=== PATIENT | male | born 1940 | race Caucasian/White ===

== ENCOUNTER → 2016-12-04 | Outpatient (CLI) | payer BC ==
[~2016-12-04] MED LIST: ANT25 PO; ASPEC81 PO; ATV1 PO; CALC600T9 PO; CARB25TA16 PO; CLB/200 PO; CLOP1TAB15 PO; CYCL5TAB PO; DIPH25CA65 PO; DONE5TAB9 PO; EFFSR150 PO; FENO134C2 PO; FIBER PO; GABA-113 PO; GLC500 PO; LOVA40TA4 PO; MELATAB2 PO; METO50TA16 PO; MULT-506 PO; NTRGSL/4 SL; OMEG10007 PO; TRAZ50TA35 PO
[2016-12-04 13:04] LABS: BASO % 0.8 %; BASO ABS # 0.03 K/uL (0-0.2); COMPLETE YES; EOS % 1.1 %; HEMATOCRIT 38.8 % (42-52); LYMPH % 26.1 %; LYMPH ABS # 0.95 K/uL (1.2-3.4); MEAN CELL VOLUME 94.4 fL (80-100); MEAN CORPUSCULAR HEMOGLOBIN 30.7 pg (25-34); MEAN CORPUSCULAR HGB CONC 32.5 g/dl (32-36); MEAN PLATELET VOLUME 9.2 fL (7.4-10.4); MONO % 15.7 %; NEUT % 56.3 %; PLATELET COUNT 186 K/uL (130-400); RED BLOOD COUNT 4.11 M/uL (4.7-6.1); WHITE BLOOD COUNT 3.64 K/uL (4.8-10.8)
[2016-12-04 13:56] LABS: ESTIMATED AVERAGE GLUCOSE 146 mg/dl; HA1C FLAG Normal (Normal)
[2016-12-04 16:29] LABS: ALT/SGPT 42 U/L (12-78); AST/SGOT 29 U/L (15-37); BLOOD UREA NITROGEN 15 mg/dl (7-18); BUN/CREATININE RATIO 12.1 (10-20); CALCIUM 8.7 mg/dl (8.5-10.1); CARBON DIOXIDE 31 mmol/L (21-32); CHLORIDE 106 mmol/L (98-107); GLUCOSE 128 mg/dl (70-99); POTASSIUM 4.6 mmol/L (3.5-5.1); SODIUM 141 mmol/L (136-145)
[2016-12-04 16:32] LABS: ALB/GLOB RATIO 1.2 (0.9-2); ALKALINE PHOSPHATASE 38 U/L (45-117); CHOLESTEROL 146 mg/dl (0-200); CHOLESTEROL/HDL RATIO 4.1; HDL CHOLESTEROL 36 mg/dl; LDL CHOLESTEROL CALCULATED 74 mg/dl; TRIGLYCERIDES 178 mg/dl (0-150); VERY LOW DENSITY LIPOPROT CALC 36 mg/dl
== END | disposition home or self-care (01) ==
LOC: C.LABMFLN 11:27
PROVIDERS: ATTEND Family Medicine
DX: E11.610 Type 2 diabetes mellitus with diabetic neuropathic arthropathy (principal); I10 Essential (primary) hypertension; I25.10 Atherosclerotic heart disease of native coronary artery without angina pectoris; E53.8 Deficiency of other specified B group vitamins; D50.9 Iron deficiency anemia, unspecified

== ENCOUNTER → 2017-01-22 | Outpatient (CLI) | payer BC ==
[2017-01-22 18:17] LABS: BASO % 0.4 %; BASO ABS # 0.02 K/uL (0-0.2); COMPLETE YES; EOS % 0.6 %; IG% 0.2 %; LYMPH % 24.6 %; LYMPH ABS # 1.18 K/uL (1.2-3.4); MEAN CELL VOLUME 94.4 fL (80-100); MEAN CORPUSCULAR HEMOGLOBIN 31.1 pg (25-34); MEAN PLATELET VOLUME 9.9 fL (7.4-10.4); MONO % 11.9 %; NEUT % 62.3 %; PLATELET COUNT 174 K/uL (130-400); RED BLOOD COUNT 3.92 M/uL (4.7-6.1); WHITE BLOOD COUNT 4.79 K/uL (4.8-10.8)
[2017-01-22 18:28] LABS: TOTAL IRON BINDING CAPACITY 421 mcg/dl (250-450)
== END | disposition home or self-care (01) ==
LOC: C.LABMFLN 12:58
PROVIDERS: ATTEND Family Medicine
DX: E11.610 Type 2 diabetes mellitus with diabetic neuropathic arthropathy (principal); I10 Essential (primary) hypertension; I25.10 Atherosclerotic heart disease of native coronary artery without angina pectoris; E53.8 Deficiency of other specified B group vitamins; D50.9 Iron deficiency anemia, unspecified; K92.1 Melena

== ENCOUNTER → 2017-02-07 | Outpatient (CLI) | payer BC | END | disposition home or self-care (01) | LOC: C.LABSPEC 17:44 | PROVIDERS: ATTEND Family Medicine | DX: E11.9 Type 2 diabetes mellitus without complications (principal); D50.9 Iron deficiency anemia, unspecified; K92.1 Melena ==

== ENCOUNTER → 2017-02-08 | Outpatient (CLI) | payer BC ==
[2017-02-08 18:12] LABS: URINE APPEARANCE CLEAR (CLEAR); URINE BILIRUBIN NEG (NEG); URINE COLOR YELLOW; URINE NITRITE NEG (NEG); URINE SPECIFIC GRAVITY 1.018 (1.000-1.030); UROBILINOGEN NEG (NEG)
[2017-02-08 18:29] LABS: MANUAL MICROSCOPIC REQUIRED? NO; REVIEW REQ? NO
[2017-02-08 18:33] LABS: RATIO 6.1 mcg/mg (0-30.0)
== END | disposition home or self-care (01) ==
LOC: C.LABMFLN 12:33
PROVIDERS: ATTEND Family Medicine
DX: E11.610 Type 2 diabetes mellitus with diabetic neuropathic arthropathy (principal); E53.8 Deficiency of other specified B group vitamins; D50.9 Iron deficiency anemia, unspecified; I10 Essential (primary) hypertension; I25.10 Atherosclerotic heart disease of native coronary artery without angina pectoris

== ENCOUNTER → 2017-02-18 | Outpatient (CLI) | payer BC ==
[2017-02-18 17:54] LABS: HEMATOCRIT 36.1 % (42-52)
== END | disposition home or self-care (01) ==
LOC: C.LABMFLN 15:48
PROVIDERS: ATTEND Family Medicine
DX: D64.9 Anemia, unspecified (principal)

== ENCOUNTER → 2017-04-19 | Outpatient (CLI) | payer BC ==
[2017-04-19 13:33] LABS: BASO ABS # 0.04 K/uL (0-0.2); COMPLETE YES; EOS % 0.8 %; HEMATOCRIT 34.3 % (42-52); IG% 0.3 %; LYMPH % 28.2 %; LYMPH ABS # 1.08 K/uL (1.2-3.4); MEAN CELL VOLUME 94.2 fL (80-100); MEAN CORPUSCULAR HEMOGLOBIN 31.6 pg (25-34); MEAN CORPUSCULAR HGB CONC 33.5 g/dl (32-36); MEAN PLATELET VOLUME 9.6 fL (7.4-10.4); MONO % 13.1 %; NEUT % 56.6 %; PLATELET COUNT 186 K/uL (130-400); RED BLOOD COUNT 3.64 M/uL (4.7-6.1); WHITE BLOOD COUNT 3.83 K/uL (4.8-10.8)
[2017-04-19 13:58] LABS: ALT/SGPT 36 U/L (12-78); AST/SGOT 25 U/L (15-37); BLOOD UREA NITROGEN 19 mg/dl (7-18); BUN/CREATININE RATIO 14.8 (10-20); CALCIUM 9.2 mg/dl (8.5-10.1); CARBON DIOXIDE 28 mmol/L (21-32); CHLORIDE 104 mmol/L (98-107); CHOLESTEROL 134 mg/dl (0-200); GLUCOSE 139 mg/dl (70-99); POTASSIUM 4.7 mmol/L (3.5-5.1); SODIUM 139 mmol/L (136-145); TRIGLYCERIDES 201 mg/dl (0-150); VERY LOW DENSITY LIPOPROT CALC 40 mg/dl
[2017-04-19 14:01] LABS: ALB/GLOB RATIO 1.3 (0.9-2); ALKALINE PHOSPHATASE 36 U/L (45-117); CHOLESTEROL/HDL RATIO 3.9; HDL CHOLESTEROL 34 mg/dl; LDL CHOLESTEROL CALCULATED 60 mg/dl
[2017-04-20 06:09] LABS: ESTIMATED AVERAGE GLUCOSE 140 mg/dl; HA1C FLAG Normal (Normal)
== END | disposition home or self-care (01) ==
LOC: C.LABMFLN 11:42
PROVIDERS: ATTEND Family Medicine
DX: E11.610 Type 2 diabetes mellitus with diabetic neuropathic arthropathy (principal); I10 Essential (primary) hypertension; D50.9 Iron deficiency anemia, unspecified

== ENCOUNTER → 2017-04-21 | Outpatient (CLI) | payer BC ==
[2017-04-21 14:45] LABS: THYROID STIMULATING HORMONE 1.43 uIu/ml (0.300-4.500)
== END | disposition home or self-care (01) ==
LOC: C.LABMFLN 11:55
PROVIDERS: ATTEND Family Medicine
DX: R53.83 Other fatigue (principal)

== ENCOUNTER → 2017-08-02 | Outpatient (CLI) | payer BC ==
[2017-08-02 18:09] LABS: HEMOGLOBIN A1C 7.3 % (4.5-5.6)
[2017-08-02 18:13] LABS: ALBUMIN 3.7 gm/dl (3.4-5.0); BLOOD UREA NITROGEN 23 mg/dl (7-18); CARBON DIOXIDE 28 mmol/L (21-32); CREATININE 1.21 mg/dl (0.60-1.40); GLUCOSE 149 mg/dl (70-99); POTASSIUM 4.4 mmol/L (3.5-5.1); SODIUM 139 mmol/L (136-145)
[2017-08-02 18:23] LABS: BASO % 1.3 %; BASO ABS # 0.05 K/uL (0-0.2); EOS % 0.5 %; EOS ABS # 0.02 K/uL (0-0.5); HEMATOCRIT 35.5 % (42-52); HEMOGLOBIN 11.6 g/dL (14.0-18.0); IG# 0.01 K/uL (0.00-0.02); LYMPH % 27.2 %; LYMPH ABS # 1.07 K/uL (1.2-3.4); MEAN CELL VOLUME 93.4 fL (80-100); MEAN CORPUSCULAR HEMOGLOBIN 30.5 pg (25-34); MEAN CORPUSCULAR HGB CONC 32.7 g/dl (32-36); MEAN PLATELET VOLUME 9.9 fL (7.4-10.4); MONO % 11.7 %; MONO ABS # 0.46 K/uL (0.11-0.59); NEUT ABS # 2.33 K/uL (1.4-6.5); PLATELET COUNT 172 K/uL (130-400); RED CELL DISTRIBUTION WIDTH CV 13.9 % (11.5-14.5); WHITE BLOOD COUNT 3.94 K/uL (4.8-10.8)
[2017-08-02 20:04] LABS: ALKALINE PHOSPHATASE 44 U/L (45-117); ALT/SGPT 35 U/L (12-78); AST/SGOT 22 U/L (15-37); CHOLESTEROL 127 mg/dl (0-200); LDL CHOLESTEROL CALCULATED 52 mg/dl; TOTAL PROTEIN 7.1 gm/dl (6.4-8.2)
== END | disposition home or self-care (01) ==
LOC: C.LABMFLN 14:03
PROVIDERS: ATTEND Family Medicine
DX: D64.9 Anemia, unspecified (principal); I10 Essential (primary) hypertension; E11.9 Type 2 diabetes mellitus without complications; Z12.5 Encounter for screening for malignant neoplasm of prostate

== ENCOUNTER → 2017-10-07 | Outpatient (CLI) | payer BC ==
[2017-10-07 18:06] LABS: HEMATOCRIT 34.4 % (42-52); HEMOGLOBIN 11.4 g/dL (14.0-18.0)
[2017-10-07 18:27] LABS: TRANSFERRIN 360 mg/dl (200-360)
== END | disposition home or self-care (01) ==
LOC: C.LABMFLN 14:01
PROVIDERS: ATTEND Family Medicine
DX: D64.9 Anemia, unspecified (principal)

== ENCOUNTER → 2017-12-02 | Outpatient (CLI) | payer BC ==
[~2017-12-02] MED LIST changes: -ASPEC81 PO; +ASPI-320 PO
== END | disposition home or self-care (01) ==
LOC: C.LABMFLN 13:54
PROVIDERS: ATTEND Family Medicine
DX: E78.00 Pure hypercholesterolemia, unspecified (principal)

== ENCOUNTER → 2018-03-03 | Outpatient (CLI) | payer BC ==
[2018-03-03 18:14] LABS: BASO % 1.1 %; BASO ABS # 0.05 K/uL (0-0.2); EOS % 0.4 %; EOS ABS # 0.02 K/uL (0-0.5); HEMATOCRIT 32.8 % (42-52); HEMOGLOBIN 10.1 g/dL (14.0-18.0); LYMPH % 26.2 %; LYMPH ABS # 1.23 K/uL (1.2-3.4); MEAN CELL VOLUME 86.5 fL (80-100); MEAN CORPUSCULAR HEMOGLOBIN 26.6 pg (25-34); MEAN CORPUSCULAR HGB CONC 30.8 g/dl (32-36); MEAN PLATELET VOLUME 9.7 fL (7.4-10.4); MONO % 8.5 %; NEUT % 63.8 %; PLATELET COUNT 195 K/uL (130-400); RED CELL DISTRIBUTION WIDTH CV 15.8 % (11.5-14.5); RED CELL DISTRIBUTION WIDTH SD 50.1 fL (36.4-46.3)
[2018-03-03 18:23] LABS: BLOOD UREA NITROGEN 19 mg/dl (7-18); CALCIUM 9.1 mg/dl (8.5-10.1); CARBON DIOXIDE 30 mmol/L (21-32); CREATININE 1.28 mg/dl (0.60-1.40); GLUCOSE 99 mg/dl (70-99); SODIUM 139 mmol/L (136-145); TRANSFERRIN 376 mg/dl (200-360)
== END | disposition home or self-care (01) ==
LOC: C.LABMFLN 14:24
PROVIDERS: ATTEND Family Medicine
DX: I10 Essential (primary) hypertension (principal); I25.10 Atherosclerotic heart disease of native coronary artery without angina pectoris; E53.8 Deficiency of other specified B group vitamins; D50.9 Iron deficiency anemia, unspecified

== ENCOUNTER 2021-01-21 14:42 | Inpatient (IN) ==
--- NOTE | 2021-01-21 15:18 | Emergency Department Note ---
History of Present Illness General Chief complaint: Shortness of Breath/Dyspnea Stated complaint: SOB Time Seen by Provider: 01/21/21 14:55 History of Present Illness Provider complaint: Shortness of breath Onset (ago): week(s) 2 Associated symptoms: + shortness of breath; no chest pain, no cough, no fever/chills, no headaches and no nausea/vomiting 74-year-old male presents emergency department for shortness of breath. Patient reports he has been having shortness of breath for the last 2 weeks after he had a port placed. Patient states he saw his zipper trimmer Dr. Chacon today who referred him to the emergency department. He states he is on Plavix. He denies any chest pain. He denies any recent travel. No hematuria melena hematochezia or dysuria. Home Medications Medication Instructions Recorded Confirmed Type lancets 33 gauge #30 ea 01/15/19 01/21/21 Rx nitroglycerin 400 mcg/spray 1 sprays SL Q5M PRN #4.9 gm 01/15/19 01/21/21 Rx translingual triamcinolone acetonide 0.1 % 1 appln TOP BID PRN 02/14/19 01/21/21 History topical cream aspirin 81 mg chewable tablet 81 mg PO QAM 02/23/19 01/21/21 History cyanocobalamin (vitamin B-12) 1,000 mcg PO HS 02/23/19 01/21/21 History 1,000 mcg tablet multivitamin 1 tab PO QPM #0 02/23/19 01/21/21 History peg 400-propylene glycol 0.4 %-0.3 1 drops OP Q4H PRN ml 02/23/19 01/21/21 History % eye drops blood sugar diagnostic #50 ea 04/13/19 01/21/21 Rx fenofibrate micronized 134 mg 134 mg PO QAM 04/27/19 01/21/21 History capsule ketoconazole 2 % shampoo 1 appln TOPICAL 2XWK #120 ml 11/24/19 01/21/21 Rx meclizine 25 mg tablet 25 mg PO TID PRN #90 tab 12/12/19 01/21/21 Rx atorvastatin 40 mg tablet 40 mg PO HS #90 tab 04/29/20 01/21/21 Rx aripiprazole 5 mg tablet 5 mg PO HS #90 tab 06/25/20 01/21/21 Rx metformin 500 mg tablet,extended 1,000 mg PO BID #360 tab 11/21/20 01/21/21 Rx release 24 hr isosorbide mononitrate 60 mg 120 mg PO QAM tab 12/05/20 01/21/21 History tablet,extended release 24 hr trazodone 100 mg tablet 300 mg PO HS #270 tab 12/26/20 01/21/21 Rx glimepiride 1 mg tablet 1 mg PO .COMPLEX tab 12/31/20 01/21/21 History ipratropium bromide 42 mcg (0.06 2 spray INTRANASAL BID PRN #15 ml 01/01/21 01/21/21 Rx %) nasal spray biotin 5,000 mcg PO HS 01/02/21 01/21/21 History cholecalciferol (vitamin D3) 50 mcg PO HS 01/02/21 01/21/21 History clopidogrel [Plavix] 75 mg PO QAM 01/02/21 01/21/21 History donepezil 5 mg PO QAM 01/02/21 01/21/21 History loratadine [Claritin] 10 mg PO QAM 01/02/21 01/21/21 History omeprazole 40 mg PO QAM 01/02/21 01/21/21 History torsemide 40 mg PO QAM 01/02/21 01/21/21 History venlafaxine 225 mg PO HS 01/02/21 01/21/21 History oxycodone-acetaminophen [Percocet] 1 - 2 tab PO .q4-6h PRN #6 tab 01/06/21 01/21/21 Rx metoprolol tartrate 50 mg tablet 50 mg PO BID #180 tab 01/18/21 01/21/21 Rx ferrous sulfate 325 mg (65 mg 325 mg PO DAILY 01/21/21 01/21/21 History iron) tablet Allergies Allergy/AdvReac Type Severity Reaction Status Date / Time Cephalosporins Allergy Intermediate FEVER/CHILL Verified 01/21/21 13:25 S diazepam AdvReac Severe DEPRESSION Verified 01/21/21 13:25 midazolam AdvReac Severe suicidal Verified 01/21/21 13:25 depression warfarin AdvReac Severe CAUSES Verified 01/21/21 13:25 TOXICITY lisinopril AdvReac Mild COUGH Verified 01/21/21 13:25 Past Med/Surg History Medical History Abnormal PET scan of lung Anemia Arthritis Bipolar affective disorder CAD (coronary artery disease) s/p AMINTA x 2 09/2015 Chest pain awoke with severe chest pain on November 02, 2020. Seen by cardio (Haseeb), had negative/normal stress echo. 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 Metastatic colorectal cancer Mild cognitive impairment Neurologic gait dysfunction Obstructive sleep apnea cpap Port-A-Cath in place Pulmonary nodules Right kidney mass Scoliosis Shortness of breath Stroke x2--09/1988 and smaller stroke in 1991--uses cane to ambulate--no neurologist now 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 Vertigo Surgical History H/O abdominal aortic aneurysm repair @ [facility] [place] 2002 H/O gastric bypass (~2003) History of AAA (abdominal aortic aneurysm) repair per pt was leaking after 1st repair and had second done 2003 @ [facility] [place] History of basal cell carcinoma excision History of bilateral cataract extraction History of cardiac cath x2 @ [facility]--10/22/2015--1 AMINTA placed 09/24/2015--1 AMINTA placed History of colonoscopy with polypectomy History of esophagogastroduodenoscopy (EGD) History of heart artery stent x2 total---10/22/2015--1 AMINTA placed 09/24/2015--1 AMINTA placed History of needle biopsy on lymph node 11/2020 History of sinus surgery (~1969) History of squamous cell carcinoma excision History of tonsillectomy History of tooth extraction all teeth Hx of cholecystectomy Hx of transurethral resection of prostate x2 S/P lumbar fusion S/P lymph node biopsy Family History Mother Urinary bladder cancer Father Lead poisoning Other No family history of adverse response to anesthesia Social History Smoking Status: Former smoker Tobacco Type: Cigarettes packs per day: 4; Years Smoked: 38; Second Hand Exposure: No; Hx Alcohol Use: Yes Alcohol type: beer Hx Substance Use: No Preferred Language: Macanese Communication Ability: Effective Invoice Control 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 Required: No Beliefs That Will Affect Care: None marital status: Current Living Situation: Spouse current occupational status: retired How many Children do You have: 2 Feels Safe at Home: Yes Physical Activity Frequency: Does not Exercise Seatbelt Use: always Assistive Devices: Cane, CPAP, Denture - Upper, Denture - Lower, Glasses and Hearing Aid - Bilateral Review of Systems A total of 10 systems reviewed and were otherwise negative Physical Exam Vital Signs Vital Signs - 24 hr 01/21/21 14:52 01/21/21 15:00 01/21/21 15:23 Temperature 37.1 C Temperature Source Oral Pulse Rate 117 H 117 H 117 H Pulse Rate from SpO2 Sensor 117 H 117 H Respiratory Rate 22 19 17 Respiratory Effort / Characteristics Non-Labored Spontaneous Respiratory Depth Normal Respiratory Pattern Regular Blood Pressure 119/90 147/86 H Blood Pressure Mean 99 106 Blood Pressure Position Sitting Pulse Oximetry 93 94 94 Oxygen Delivery Method Nasal Cannula Oxygen Flow Rate 2 Sepsis Recent Fever Within 48 Hours No Sepsis New/Unexplained Change in Mental Status No Sepsis Action Taken by Nursing Physician Notified 01/21/21 15:30 01/21/21 15:40 01/21/21 15:50 Temperature Temperature Source Pulse Rate 118 H 116 H 117 H Pulse Rate from SpO2 Sensor 119 H 117 H 118 H Respiratory Rate 16 19 Respiratory Effort / Characteristics Respiratory Depth Respiratory Pattern Blood Pressure Blood Pressure Mean Blood Pressure Position Pulse Oximetry 94 94 95 Oxygen Delivery Method Oxygen Flow Rate Sepsis Recent Fever Within 48 Hours Sepsis New/Unexplained Change in Mental Status Sepsis Action Taken by Nursing 01/21/21 16:00 01/21/21 16:01 01/21/21 16:02 Temperature Temperature Source Pulse Rate 122 H 122 H Pulse Rate from SpO2 Sensor 123 H 122 H Respiratory Rate 16 18 Respiratory Effort / Characteristics Respiratory Depth Respiratory Pattern Blood Pressure 155/97 H Blood Pressure Mean 116 Blood Pressure Position Pulse Oximetry 95 96 96 Oxygen Delivery Method Nasal Cannula Oxygen Flow Rate 2 Sepsis Recent Fever Within 48 Hours Sepsis New/Unexplained Change in Mental Status Sepsis Action Taken by Nursing 01/21/21 16:10 01/21/21 16:20 01/21/21 16:30 Temperature Temperature Source Pulse Rate 120 H 120 H 117 H Pulse Rate from SpO2 Sensor 121 H 120 H 116 H Respiratory Rate 16 19 Respiratory Effort / Characteristics Respiratory Depth Respiratory Pattern Blood Pressure Blood Pressure Mean Blood Pressure Position Pulse Oximetry 96 97 97 Oxygen Delivery Method Oxygen Flow Rate Sepsis Recent Fever Within 48 Hours Sepsis New/Unexplained Change in Mental Status Sepsis Action Taken by Nursing 01/21/21 16:40 Temperature Temperature Source Pulse Rate 120 H Pulse Rate from SpO2 Sensor 122 H Respiratory Rate 20 Respiratory Effort / Characteristics Respiratory Depth Respiratory Pattern Blood Pressure Blood Pressure Mean Blood Pressure Position Pulse Oximetry 97 Oxygen Delivery Method Oxygen Flow Rate Sepsis Recent Fever Within 48 Hours Sepsis New/Unexplained Change in Mental Status Sepsis Action Taken by Nursing Physical Exam GENERAL: She is oriented to person, place, and time. She appears well-developed and well-nourished. She does not appear distressed. HENT: Exam performed. -Head: Normocephalic and atraumatic. -Right Ear: External ear normal. No mastoid tenderness. -Left Ear: External ear normal. No mastoid tenderness. -Mouth/Throat: The oropharynx is clear and moist. No trismus in the jaw. No dental abscesses or uvula swelling. No oropharyngeal exudate or tonsillar abscesses. EYES: Conjunctivae and EOM are normal. Pupils are equal, round, and reactive to light. Right eye exhibits no discharge. Left eye exhibits no discharge. No scleral icterus. NECK: Normal range of motion. Neck supple. No JVD present. No spinous process tenderness present. No carotid bruit present. No rigidity. No tracheal deviation and normal range of motion present. No Brudzinski's sign and no Kernig's sign noted. CV: Tachycardic rate, regular rhythm, normal heart sounds and intact distal pulses. There is no peripheral edema. Palpable radial pulses bue. PULM/CHEST: Diminished breath sounds bilaterally. -Chest Wall: She exhibits no tenderness. ABD: The abdomen is soft. Bowel sounds are normal. She has no distension. No mass is present. There is no tenderness. There is no rebound, no guarding, no Ridley's sign and no tenderness at McBurney's point. Rovsig negative MUSC/SKEL: Normal range of motion. There is no peripheral edema, tenderness or deformity. LYMPH: No cervical adenopathy. NEURO: She is alert and oriented to person, place, and time. She has normal strength. No cranial nerve deficit or sensory deficit. Coordination and gait normal. GCS eye subscore is 4. GCS verbal subscore is 5. GCS motor subscore is 6. Cerebellar tests wnl. SKIN: Pale. PSYCH: She has a normal mood and affect. Behavior is normal. Judgment and thought content normal. Course Course 1455: The patient was evaluated in room A11. A complete history and physical exam was performed Cardiac monitoring: An order was placed for continuous cardiac monitoring. The monitor shows a rate of 110 with sinus tachycardia rhythm I received a call from the patient's zipper trimmer Dr. Bray who informed about the patient. He states he conducted a chest x-ray which showed a pleural effusion that is worsening. He states he is referring the patient to the emergency department for his colleague Dr. Braydon Alan to evaluate the patient for thoracentesis/drainage of the effusion. 1505: Dr. Alan was notified of the patient arriving in the emergency department states he will be down to evaluate the patient shortly. 1645: Vital signs stable. Labs show hemoglobin of 7.8 which is down from 8.[address] Alan came down and evaluated the patient and performed thoracentesis. We will plan on admitting the patient to the medicine service given his worsening anemia and pleural effusion that required drainage. Hemoccult positive. Discussed case with Dr. Sanabria will evaluate the patient for admission. Dr. Sanabria and her team state hold off on Protonix bolus and drip at this point as they will dose the patient's Protonix. Medical Decision Making Laboratory Data Result diagrams: 01/21/21 15:38 01/21/21 15:38 Lab Results 01/21/21 01/21/21 01/21/21 Range/Units 15:38 15:38 15:38 WBC 5.70 (4.8-10.8) K/uL RBC 3.10 L (4.7-6.1) M/uL Hgb 7.8 L (14.0-18.0) g/dL Hct 24.8 L (42-52) % MCV 80.0 (80-100) fL MCH 25.2 (25-34) pg MCHC 31.5 L (32-36) g/dL RDW Std Deviation 45.7 (36.4-46.3) fL RDW Coeff of Joe 15.6 H (11.5-14.5) % Plt Count 306 (130-400) K/uL MPV 8.2 (7.4-10.4) fL Immature Gran % (Auto) 0.2 % Neut % (Auto) 74.4 % Lymph % (Auto) 11.8 % Elbert % (Auto) 10.2 % Eos % (Auto) 2.5 % Baso % (Auto) 0.9 % Neut # (Auto) 4.25 (1.4-6.5) K/uL Lymph # (Auto) 0.67 L (1.2-3.4) K/uL Elbert # (Auto) 0.58 (0.11-0.59) K/uL Eos # (Auto) 0.14 (0-0.5) K/uL Baso # (Auto) 0.05 (0-0.2) K/uL Immature Gran # (Auto) 0.01 (0.00-0.02) K/uL Hypochromasia Present Ovalocytes 1+ PT 10.7 (9.0-12.0) Seconds INR 1.1 (0.9-1.1) APTT 25.6 (21.0-31.0) Seconds PTT Ratio 1.0 Sodium 137 (136-145) mmol/L Potassium 4.1 (3.5-5.1) mmol/L Chloride 104 (98-107) mmol/L Carbon Dioxide 27 (21-32) mmol/L Anion Gap 6.0 (3-11) BUN 18 (7-18) mg/dl Creatinine 1.12 (0.6-1.4) mg/dl Est Cr Clr Drug Dosing 73.3 ml/min Est GFR ( Amer) 72.5 ml/min Est GFR (Non-Af Amer) 62.6 ml/min BUN/Creatinine Ratio 16.4 (10-20) Glucose 172 H (70-99) mg/dl Calcium 8.7 (8.5-10.1) mg/dl Fluid Comment Pleural pH (7.3-7.4) COVID-19 Eval Order SARS-CoV-2 (PCR) (Negative) 01/21/21 01/21/21 01/21/21 Range/Units 15:38 15:38 16:14 WBC (4.8-10.8) K/uL RBC (4.7-6.1) M/uL Hgb (14.0-18.0) g/dL Hct (42-52) % MCV (80-100) fL MCH (25-34) pg MCHC (32-36) g/dL RDW Std Deviation (36.4-46.3) fL RDW Coeff of Joe (11.5-14.5) % Plt Count (130-400) K/uL MPV (7.4-10.4) fL Immature Gran % (Auto) % Neut % (Auto) % Lymph % (Auto) % Elbert % (Auto) % Eos % (Auto) % Baso % (Auto) % Neut # (Auto) (1.4-6.5) K/uL Lymph # (Auto) (1.2-3.4) K/uL Elbert # (Auto) (0.11-0.59) K/uL Eos # (Auto) (0-0.5) K/uL Baso # (Auto) (0-0.2) K/uL Immature Gran # (Auto) (0.00-0.02) K/uL Hypochromasia Ovalocytes PT (9.0-12.0) Seconds INR (0.9-1.1) APTT (21.0-31.0) Seconds PTT Ratio Sodium (136-145) mmol/L Potassium (3.5-5.1) mmol/L Chloride (98-107) mmol/L Carbon Dioxide (21-32) mmol/L Anion Gap (3-11) BUN (7-18) mg/dl Creatinine (0.6-1.4) mg/dl Est Cr Clr Drug Dosing ml/min Est GFR ( Amer) ml/min Est GFR (Non-Af Amer) ml/min BUN/Creatinine Ratio (10-20) Glucose (70-99) mg/dl Calcium (8.5-10.1) mg/dl Fluid Comment Pleural pH (7.3-7.4) COVID-19 Eval Order Covid19 at [facility] SARS-CoV-2 (PCR) NEGATIVE (Negative) 01/21/21 Range/Units 16:14 WBC (4.8-10.8) K/uL RBC (4.7-6.1) M/uL Hgb (14.0-18.0) g/dL Hct (42-52) % MCV (80-100) fL MCH (25-34) pg MCHC (32-36) g/dL RDW Std Deviation (36.4-46.3) fL RDW Coeff of Joe (11.5-14.5) % Plt Count (130-400) K/uL MPV (7.4-10.4) fL Immature Gran % (Auto) % Neut % (Auto) % Lymph % (Auto) % Elbert % (Auto) % Eos % (Auto) % Baso % (Auto) % Neut # (Auto) (1.4-6.5) K/uL Lymph # (Auto) (1.2-3.4) K/uL Elbert # (Auto) (0.11-0.59) K/uL Eos # (Auto) (0-0.5) K/uL Baso # (Auto) (0-0.2) K/uL Immature Gran # (Auto) (0.00-0.02) K/uL Hypochromasia Ovalocytes PT (9.0-12.0) Seconds INR (0.9-1.1) APTT (21.0-31.0) Seconds PTT Ratio Sodium (136-145) mmol/L Potassium (3.5-5.1) mmol/L Chloride (98-107) mmol/L Carbon Dioxide (21-32) mmol/L Anion Gap (3-11) BUN (7-18) mg/dl Creatinine (0.6-1.4) mg/dl Est Cr Clr Drug Dosing ml/min Est GFR ( Amer) ml/min Est GFR (Non-Af Amer) ml/min BUN/Creatinine Ratio (10-20) Glucose (70-99) mg/dl Calcium (8.5-10.1) mg/dl Fluid Comment Pleural pH 7.39 (7.3-7.4) COVID-19 Eval Order SARS-CoV-2 (PCR) (Negative) Imaging Data Radiologist's Impression: Chest X-Ray 01/21/21 16:28 XR chest 1V portable CLINICAL HISTORY: S/P Thoracentesis COMPARISON STUDY: 01/21/2021 FINDINGS: There is a right-sided A-Port catheter. The heart is mildly enlarged. There is aortic tortuosity/ectasia. There is pulmonary emphysema. There are bilateral pulmonary nodules. There is interval decrease in the size of the right pleural effusion status post thoracentesis. No pneumothorax is visualized.[ IMPRESSION: 1. No pneumothorax status post thoracentesis 2. Multiple bilateral pulmonary nodules 3. Pulmonary emphysema ACT 112: Negative or not required by law. Electronically signed by: Babak Infante M.D. 01/21/2021 4:47 PM ECG Data Indication: + SOB/dyspnea Rate (beats per minute): 116 Rhythm: + sinus tachycardia ECG Intervals/blocks: + Normal UT and + Normal QT-c ECG ST segments: + Normal ST segments Additional Comments: QRS 72 MDM Narrative 1455: The patient was evaluated in room A11. A complete history and physical exam was performed Cardiac monitoring: An order was placed for continuous cardiac monitoring. The monitor shows a rate of 110 with sinus tachycardia rhythm I received a call from the patient's zipper trimmer Dr. Bray who informed about the patient. He states he conducted a chest x-ray which showed a pleural effusion that is worsening. He states he is referring the patient to the emergency department for his colleague Dr. Braydon Alan to evaluate the patient for thoracentesis/drainage of the effusion. 1505: Dr. Alan was notified of the patient arriving in the emergency department states he will be down to evaluate the patient shortly. 1645: Vital signs stable. Labs show hemoglobin of 7.8 which is down from 8.[address] Alan came down and evaluated the patient and performed thoracentesis. We will plan on admitting the patient to the medicine service given his worsening anemia and pleural effusion that required drainage. Hemoccult positive. Discussed case with Dr. Sanabria will evaluate the patient for admission. Dr. Sanabria and her team state hold off on Protonix bolus and drip at this point as they will dose the patient's Protonix. 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, Pleural effusion, GI bleed Patient Disposition: Admitted As Inpatient Forms Stand Alone Forms: [facility] Prescriptions Prescriptions: No Action multivitamin tablet 1 tab PO QPM Qty: 0 RF: 0 (DME) OneTouch Verio test strips strip See Dose Instructions .ROUTE .MEDSUPPLY Qty: 50 RF: 5 meclizine 25 mg tablet 25 mg PO TID PRN (Reason: dizziness) Qty: 90 RF: 3 atorvastatin 40 mg tablet 40 mg PO HS Qty: 90 RF: 3 metformin 500 mg tablet extended release 24 hr 1,000 mg PO BID Qty: 360 RF: 3 trazodone 100 mg tablet 300 mg PO HS Qty: 270 RF: 3 ipratropium bromide 42 mcg (0.06 %) spray,non-aerosol 2 spray intranasal BID PRN (Reason: nasal congestion) Qty: 15 RF: 11 (DME) lancets [OneTouch Delica Lancets] 33 gauge misc See Dose Instructions .ROUTE .MEDSUPPLY Qty: 30 RF: 5 nitroglycerin 400 mcg/spray spray,non-aerosol 1 sprays SL Q5M PRN (Reason: chest pain) Qty: 4.9 RF: 5 peg 400-propylene glycol 0.4-0.3 % drops 1 drops OP Q4H PRN (Reason: Dry Eye(S)) RF: 0 ketoconazole 2 % shampoo 1 appln topical 2XWK Qty: 120 RF: 1 isosorbide mononitrate 60 mg tablet extended release 24 hr 120 mg PO QAM RF: 0 glimepiride 1 mg tablet 1 mg PO .COMPLEX RF: 0 fenofibrate micronized 134 mg capsule 134 mg PO QAM RF: 0 ferrous sulfate [Feosol] 325 mg (65 mg iron) tablet 325 mg PO DAILY RF: 0 triamcinolone acetonide 0.1 % cream 1 appln TOP BID PRN (Reason: Rash) RF: 0 aripiprazole 5 mg tablet 5 mg PO HS Qty: 90 RF: 3 metoprolol tartrate 50 mg tablet 50 mg PO BID Qty: 180 RF: 1 aspirin 81 mg tablet,chewable 81 mg PO QAM RF: 0 cyanocobalamin (vitamin B-12) [Vitamin B-12] 1,000 mcg tablet 1,000 mcg PO HS RF: 0 biotin 5,000 mcg Tablet,Disintegrating 5,000 mcg PO HS RF: 0 venlafaxine 75 mg capsule,extended release 24hr 225 mg PO HS RF: 0 donepezil 5 mg tablet 5 mg PO QAM RF: 0 torsemide 20 mg tablet 40 mg PO QAM RF: 0 clopidogrel [Plavix] 75 mg tablet 75 mg PO QAM RF: 0 cholecalciferol (vitamin D3) 50 mcg (2,000 unit) tablet,chewable 50 mcg PO HS RF: 0 loratadine [Claritin] 10 mg Tablet 10 mg PO QAM RF: 0 omeprazole 40 mg Capsule,Delayed Release(Dr/Ec) 40 mg PO QAM RF: 0 oxycodone-acetaminophen [Percocet] 5-325 mg tablet 1 - 2 tab PO .q4-6h PRN (Reason: pain, for initial therapy, max 6 tabs per day) Qty: 6 RF: 0 Referrals Referrals: Mundo Dc MD [Primary Care Provider] - Discharge Problem: GI bleed Qualifiers: GI bleed type/associated pathology: unspecified gastrointestinal hemorrhage type Qualified Code(s): K92.2 - Gastrointestinal hemorrhage, unspecified
[2021-01-21 15:51] LABS: Basophils # (auto) 0.05 K/uL (0-0.2); Basophils % (auto) 0.9 %; Eosinophils # (auto) 0.14 K/uL (0-0.5); Eosinophils % (auto) 2.5 %; Hematocrit (blood only) 24.8 % (42-52); Hemoglobin 7.8 g/dL (14.0-18.0); Immature Granulocytes # (auto) 0.01 K/uL (0.00-0.02); Immature Granulocytes % (auto) 0.2 %; Lymphocytes # (auto) 0.67 K/uL (1.2-3.4); Lymphocytes % (auto) 11.8 %; Mean Corpuscular Hemoglobin 25.2 pg (25-34); Mean Corpuscular Hgb Conc 31.5 g/dL (32-36); Mean Platelet Volume 8.2 fL (7.4-10.4); Monocytes # (auto) 0.58 K/uL (0.11-0.59); Monocytes % (auto) 10.2 %; Neutrophils # (auto) 4.25 K/uL (1.4-6.5); Neutrophils % (auto) 74.4 %; Platelet Count 306 K/uL (130-400); RDW Coefficient of Variation 15.6 % (11.5-14.5); RDW Standard Deviation 45.7 fL (36.4-46.3)
[2021-01-21 16:02] LABS: INR 1.1 (0.9-1.1); Partial Thromboplastin Time 25.6 Seconds (21.0-31.0); Prothrombin Time 10.7 Seconds (9.0-12.0)
[2021-01-21 16:08] LABS: BUN Creatinine Ratio 16.4 (10-20); Calcium 8.7 mg/dl (8.5-10.1); Creatinine Clr Calc Pharmacy 73.3 ml/min; Est GFR (African American) 72.5 ml/min; Est GFR (Non-African American) 62.6 ml/min; Potassium 4.1 mmol/L (3.5-5.1)
[2021-01-21 16:16] LABS: Hypochromasia Present; Ovalocytes 1+
--- NOTE | 2021-01-21 16:37 | Pulmonary Consultation ---
Date of Consultation January 21, 2021 Assessment & Plan (1) Shortness of breath: (2) Pleural effusion: Impression: 80-year-old male with history of metastatic colorectal cancer presenting now with new pleural effusion, hypoxemia, and tachycardia. Recommendations: 1. Pleural effusion: Differential is broad and would include infectious etiologies, congestive heart failure, malignant pleural effusion, or hemothorax. I feel sampling of the fluid is warranted to both alleviate patient's symptoms and to provide an effective diagnosis. He is on Plavix which increases his risk of bleeding. Ideally would like to have him off Plavix for 5 days however the urgency of the situation warrants tapping the effusion at this point time. The patient was consented. He understands the risks and benefits and is willing to proceed with therapeutic and diagnostic thoracentesis. Fluid will be sent for cell count and differential, cytology, Gram stain and culture, LDH, total protein, glucose, and pH. Post procedure chest x-ray will be performed as well. Depending on analysis of the pleural fluid and rate of reaccumulation, long- term management strategies may be entertained with the patient and might include pleurodesis versus Pleurx catheter placement versus serial thoracentesis. 2. Dyspnea: Suspect this is related to the pleural effusion. We will see how he responds to drainage and check his follow-up chest x-ray. 3. Hypoxemia: Secondary to #1. Wean oxygen as tolerated post procedure. 4. Tachycardia and hypoxemia: Given the patient's malignancy, he is at risk for thromboembolic disease. Would recommend evaluation with a CT angiogram to exclude thromboembolic disease. It appears the patient is going to be admitted to the hospital service. I will continue to follow him from a pulmonary standpoint. Please contact us with changes in his pulmonary status in the interim. History of Present Illness History of Present Illness Asked by ER to assist in evaluation management this patient with known metastatic colorectal cancer and pleural effusion. History is obtained from review electronic medical record, discussion with patient's outpatient rubber goods tester, and the ER staff as well as interview the patient his at bedside. Patient is a 80-year-old male who is followed by one of my partners in the pulmonary clinic. He has a history of metastatic colorectal cancer and recently underwent excision of a lymph node in the infraclavicular space which unfortunately proved to be metastatic colorectal cancer. He underwent so underwent a port placement at that time. He is pending initiation of chemotherapy under the direction of . He was seen in the pulmonary clinic today for follow-up. He states that he has had about a 1 week history of increasing shortness of breath with some chest pressure especially with right side down. He was tachycardic in the pulmonary clinic and chest x-ray demonstrated right pleural effusion with some basilar consolidation. The patient was referred to the emergency room where I evaluated him. He denies any history of trauma. No fevers chills night sweats. No cough or sputum production. No unintentional weight loss. He is on Plavix for a prior history of strokes. He does not complain of any palpitations or significant progressive lower extremity edema. Allergies Allergy/AdvReac Type Severity Reaction Status Date / Time Cephalosporins Allergy Intermediate FEVER/CHILL Verified 01/21/21 13:25 S diazepam AdvReac Severe DEPRESSION Verified 01/21/21 13:25 midazolam AdvReac Severe suicidal Verified 01/21/21 13:25 depression warfarin AdvReac Severe CAUSES Verified 01/21/21 13:25 TOXICITY lisinopril AdvReac Mild COUGH Verified 01/21/21 13:25 Home Medications Medication Instructions Recorded Confirmed Type lancets 33 gauge #30 ea 01/15/19 01/21/21 Rx nitroglycerin 400 mcg/spray 1 sprays SL Q5M PRN #4.9 gm 01/15/19 01/21/21 Rx translingual triamcinolone acetonide 0.1 % 1 appln TOP BID PRN 02/14/19 01/21/21 History topical cream aspirin 81 mg chewable tablet 81 mg PO QAM 02/23/19 01/21/21 History cyanocobalamin (vitamin B-12) 1,000 mcg PO HS 02/23/19 01/21/21 History 1,000 mcg tablet multivitamin 1 tab PO QPM #0 02/23/19 01/21/21 History peg 400-propylene glycol 0.4 %-0.3 1 drops OP Q4H PRN ml 02/23/19 01/21/21 History % eye drops blood sugar diagnostic #50 ea 04/13/19 01/21/21 Rx fenofibrate micronized 134 mg 134 mg PO QAM 04/27/19 01/21/21 History capsule ketoconazole 2 % shampoo 1 appln TOPICAL 2XWK #120 ml 11/24/19 01/21/21 Rx meclizine 25 mg tablet 25 mg PO TID PRN #90 tab 12/12/19 01/21/21 Rx atorvastatin 40 mg tablet 40 mg PO HS #90 tab 04/29/20 01/21/21 Rx aripiprazole 5 mg tablet 5 mg PO HS #90 tab 06/25/20 01/21/21 Rx metformin 500 mg tablet,extended 1,000 mg PO BID #360 tab 11/21/20 01/21/21 Rx release 24 hr isosorbide mononitrate 60 mg 120 mg PO QAM tab 12/05/20 01/21/21 History tablet,extended release 24 hr trazodone 100 mg tablet 300 mg PO HS #270 tab 12/26/20 01/21/21 Rx glimepiride 1 mg tablet 1 mg PO .COMPLEX tab 12/31/20 01/21/21 History ipratropium bromide 42 mcg (0.06 2 spray INTRANASAL BID PRN #15 ml 01/01/21 01/21/21 Rx %) nasal spray biotin 5,000 mcg PO HS 01/02/21 01/21/21 History cholecalciferol (vitamin D3) 50 mcg PO HS 01/02/21 01/21/21 History clopidogrel [Plavix] 75 mg PO QAM 01/02/21 01/21/21 History donepezil 5 mg PO QAM 01/02/21 01/21/21 History loratadine [Claritin] 10 mg PO QAM 01/02/21 01/21/21 History omeprazole 40 mg PO QAM 01/02/21 01/21/21 History torsemide 40 mg PO QAM 01/02/21 01/21/21 History venlafaxine 225 mg PO HS 01/02/21 01/21/21 History oxycodone-acetaminophen [Percocet] 1 - 2 tab PO .q4-6h PRN #6 tab 01/06/21 01/21/21 Rx metoprolol tartrate 50 mg tablet 50 mg PO BID #180 tab 01/18/21 01/21/21 Rx ferrous sulfate 325 mg (65 mg 325 mg PO DAILY 01/21/21 01/21/21 History iron) tablet Patient History Medical History Abnormal PET scan of lung Anemia Arthritis Bipolar affective disorder CAD (coronary artery disease) s/p AMINTA x 2 09/2015 Chest pain awoke with severe chest pain on November 02, 2020. Seen by cardio (Haseeb), had negative/normal stress echo. 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 Metastatic colorectal cancer Mild cognitive impairment Neurologic gait dysfunction Obstructive sleep apnea cpap Port-A-Cath in place Pulmonary nodules Right kidney mass Scoliosis Shortness of breath Stroke x2--09/1988 and smaller stroke in 1991--uses cane to ambulate--no neurologist now 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 Vertigo Surgical History H/O abdominal aortic aneurysm repair @ [facility] [place] 2002 H/O gastric bypass (~2003) History of AAA (abdominal aortic aneurysm) repair per pt was leaking after 1st repair and had second done 2003 @ [facility] [place] History of basal cell carcinoma excision History of bilateral cataract extraction History of cardiac cath x2 @ [facility]--10/22/2015--1 AMINTA placed 09/24/2015--1 AMINTA placed History of colonoscopy with polypectomy History of esophagogastroduodenoscopy (EGD) History of heart artery stent x2 total---10/22/2015--1 AMINTA placed 09/24/2015--1 AMINTA placed History of needle biopsy on lymph node 11/2020 History of sinus surgery (~1969) History of squamous cell carcinoma excision History of tonsillectomy History of tooth extraction all teeth Hx of cholecystectomy Hx of transurethral resection of prostate x2 S/P lumbar fusion S/P lymph node biopsy Family History Mother Urinary bladder cancer Father Lead poisoning Other No family history of adverse response to anesthesia Social History Smoking Status: Former smoker Tobacco Type: Cigarettes packs per day: 4; Years Smoked: 38; Second Hand Exposure: No; Hx Alcohol Use: Yes Alcohol type: beer Hx Substance Use: No Preferred Language: Salvadorean Communication Ability: Effective 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: No Beliefs That Will Affect Care: None marital status: Current Living Situation: Spouse current occupational status: retired How many Children do You have: 2 Feels Safe at Home: Yes Physical Activity Frequency: Does not Exercise Seatbelt Use: always Assistive Devices: Cane, CPAP, Denture - Upper, Denture - Lower, Glasses and Hearing Aid - Bilateral Review of Systems Review of Systems: All systems reviewed & are unremarkable except as noted in HPI & below Physical Exam Constitutional: WD/WN, vitals as above Neck: trachea midline, no thyromegaly Respiratory: normal respiratory effort; no respiratory distress and no labored breathing Decreased breath sounds at the right lung base with dullness to percussion Cardiovascular: RRR, no murmur, no edema Gastrointestinal (Abdomen): normal bowel sounds, soft, nontender, no hepatosplenomegaly Musculoskeletal: Extremities: extremities normal to inspection Skin: no rashes, warm and dry Neurologic: Nonfocal exam Lymphatic: no cervical lymphadenopathy Results & Data Results & Data ([facility]) Vital Signs (Past 12 Hours) Vital Signs Temp Pulse Resp BP Pulse Ox 01/21/21 16:02 96 01/21/21 14:52 37.1 C 117 H 22 119/90 93 Laboratory Results 01/21/21 15:38 01/21/21 15:38 Diagnostic Findings Chest x-ray from today was independently reviewed. It demonstrates a new right- sided pleural effusion with some compressive atelectasis. Mild cardiomegaly is noted. PG Care Time/CCT Total # of Minutes Spent Total Time Spent with Patient: Total time spent is greater than 50% in coordination of care (as documented) at patient's floor/unit and/or counseling patient: Coding Level of Care Code 78319 Initial Inpt Care Lvl 3 Diagnoses Shortness of breath R06.02 Pleural effusion J90 Time Spent (min) 45
--- NOTE | 2021-01-21 16:39 | Procedure Note ---
Procedure Note Date of Service January 21, 2021 Procedure: Diagnostic therapeutic ultrasound-guided catheter thoracentesis Client Solutions Director: Dr. Bunny Alan Indication: Pleural effusion Consent: Signed by patient and verified with timeout prior to procedure Anesthesia: 10 mL's 1% lidocaine without epinephrine local. Procedure: Consent was verified and timeout performed. Appropriate imaging studies were reviewed prior to the procedure. Patient was placed in a seated position and limited thoracic ultrasound was performed of the bilateral chest. A moderate sized right effusion with some compressive atelectasis was identified. No significant pleural fluid was noted on the left. Site appropriate for thoracentesis on the right was selected. The skin was prepped and draped in normal sterile fashion. Lidocaine was used for local analgesia. Fluid was aspirated via the finder needle. A small skin nicci was made with the scalpel and the catheter over the needle apparatus was advanced over the rib into the pleural space. Using the syringe one-way valve system, a total of 1600 mL's of bloody fluid was removed. Procedure was terminated due to patient coughing. The catheter was removed and observed to be intact. A sterile dressing was applied. Post procedure chest x-ray was ordered. Fluid was sent for cytology, cell count differential, Gram stain and culture, LDH, total protein, pH, and glucose. The patient tolerated the procedure well without obvious complication Coding CPT Codes Pulmonary/Thoracic - Pulmonary and Thoracic: 76432 Thoracentesis w imaging ([id number]) [facility] Procedure Codes (Charges) Pulmonary/Thoracic Procedure 1: Pulmonary and Thoracic: 74463 Thoracentesis w imaging
--- NOTE | 2021-01-21 16:49 | XRay Report ---
XR chest 1V portable CLINICAL HISTORY: S/P Thoracentesis COMPARISON STUDY: 01/21/2021 FINDINGS: There is a right-sided A-Port catheter. The heart is mildly enlarged. There is aortic tortu osity/ectasia. There is pulmonary emphysema. There are bilateral pulmonary nodules. There is interval decrease in the size of the right pleural effusion status post thoracentesis. No pneumothorax is vis ualized.[ IMPRESSION: 1. No pneumothorax status post thoracentesis 2. Multiple bilateral pulmonary nodules 3. Pulmonary emphysema ACT 112: Negative or not required by law. Electronically signed by: Babak Infante M.D. 01/21/2021 4:47 PM
--- NOTE | 2021-01-21 16:56 | History & Physical Report ---
Date of Service January 21, 2021 Assessment & Plan (1) Pleural effusion: malignant vs. hemothorax vs. less likely heart failure - Thoracentesis as per HPI- appreciate pulmonary assistance - cytology, cell count, culture, stains per pulmonary- pending - Post procedure x-ray completed, improved air space with no immediate complications noted - Continue to follow- CXR in morning (2) Metastatic colorectal cancer: As per HPI- was to start chemotherapy tomorrow - Dr. Tirado consulted- treatment cycles and adjustment per heme/onc - Heparin for VTE prophylaxis for now (3) Dyspnea: Multiple causes to include lung cancer, pleural effusion, anemia - Follow with resolution/management of pleural effusion - 1unit prbc ordered - continue with iron replacement - CTA of the chest pending (4) Anemia: Symptomatic with increase in his position changes and dyspnea - Again multifactorial- with his history of gastric bypass as well - he reports just starting back on his iron deficiency- continue - MCV 80, MCH 25 - Heme positive in the EMD via Hemoccult test- Protonix 40 bid IV will be added - ? 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: Hold oral hypoglycemia while in house - Sliding scale aspart coverage with CF 35, 0 carb ratio (8) Unstable angina: No symptoms- had CAD with with stent in 2016 - Also notable AAA with [facility] in 2002 - Continue with blood pressure control- Metoprolol tartrate 50mg BID - Torsemide 40 daily - Isosorbide 60mg daily- continue as long as patient remains hemodynamically stable - Continue ASA with [facility] and cardiac stents- Plavix on hold following evaluation/need for repeat thoracentesis/drain (9) Benign essential hypertension: As above (10) Obstructive sleep apnea: CPAP 12 cm H20 at home (11) HLD (hyperlipidemia): Atorvastatin 40mg qhs- continue - Fenofibrate continue (12) Depression: Note review with bi-polar depression with ? suicide attempt - Continue aripiprazole and venlafaxine - Patient is in good spirits at this time as he feels relieved that his dyspnea is being "fixed" (13) DVT prophylaxis: Heparin SQ History of Present Illness Primary Care Provider: Mundo Dc MD 80 YOM with past medical history of metastatic colon adenocarcinoma. Patient was originally being worked up for infraclavicular lymphadenopathy and pulmonary nodules with differential of birdie cell carcinoma versus colrectal primary. He underwent biopsy of lymph nodes as well as CTA of the chest. The chest CTA revealed multiple pulmonary nodules and was followed up with a PET scan. The FNA of they lymph node reported metastatic carcinoma without definitive primary with re-biopsy on 614 revealing adenocarcinoma with colorectal immunophenotype. PET scan completed 12/13- multiple pulm nodules int he right lung with additional small nodules, mediastinal and left infraclavicular LN, mixed intensity to right upper pole of kidney, hepatic lesions and bibasilar pulmonary nodules. In the interim the patient has had a medi-port placed in his right subclavian ve in, and was due to start chemotherapy tomorrow with FOLFOX and Avastin under Dr. Moulton. He went to see his Help Desk Intern today for ongoing dyspnea that has started about 1-1/2 weeks ago. The patient stated that this dyspnea was also associated with a sharp stabbing pain that went across the bottom of his rib cage along his diaphragm, and this was so sharp it would limit his ability to take a deep breath. He had a chest x-ray performed at at pulmonary visit that demonstrated a right pleural effusion. He was sent to the EMD and pulmonary was consulted. He had a bedside thoracentesis performed with 1.6 L of bloody fluid drained. The patient was seen just after this procedure and noted an immediate relief in his symptoms and breathing. The patient was also noted a down trending of his HGB over the past 2 months from 9.6-7.8. He was also recently started iron supplementation this past week as well. The patient denies any dark tarry stools except this morning or any other blood loss. He has been noticing increase in his baseline dizziness as well over the past week. He reportedly was heme-positive in the EMD. In the setting of his pallor, fatigue, and chemotherapy induction tomorrow, will transfuse PRBC 1-2 units based on response and clinical need. For his dyspnea and tachycardia, he had his pleural effusion drained as above, agree with pulmonary that a CTA of the chest be performed to rule out pulmonary embolism. Already ordered and awaiting results. Patient will be admitted for monitoring of his pleural effusion, transfusion and further evaluate for acute blood loss, however his blood work now is consistent with chronic disease anemia, and follow up on his pleural fluid analysis. Allergies Allergy/AdvReac Type Severity Reaction Status Date / Time Cephalosporins Allergy Intermediate FEVER/CHILL Verified 01/21/21 13:25 S diazepam AdvReac Severe DEPRESSION Verified 01/21/21 13:25 midazolam AdvReac Severe suicidal Verified 01/21/21 13:25 depression warfarin AdvReac Severe CAUSES Verified 01/21/21 13:25 TOXICITY lisinopril AdvReac Mild COUGH Verified 01/21/21 13:25 Home Medications Medication Instructions Recorded Confirmed Type lancets 33 gauge #30 ea 01/15/19 01/21/21 Rx nitroglycerin 400 mcg/spray 1 sprays SL Q5M PRN #4.9 gm 01/15/19 01/21/21 Rx translingual triamcinolone acetonide 0.1 % 1 appln TOP BID PRN 02/14/19 01/21/21 History topical cream aspirin 81 mg chewable tablet 81 mg PO QAM 02/23/19 01/21/21 History cyanocobalamin (vitamin B-12) 1,000 mcg PO HS 02/23/19 01/21/21 History 1,000 mcg tablet multivitamin 1 tab PO QPM #0 02/23/19 01/21/21 History peg 400-propylene glycol 0.4 %-0.3 1 drops OP Q4H PRN ml 02/23/19 01/21/21 History % eye drops blood sugar diagnostic #50 ea 04/13/19 01/21/21 Rx fenofibrate micronized 134 mg 134 mg PO QAM 04/27/19 01/21/21 History capsule ketoconazole 2 % shampoo 1 appln TOPICAL 2XWK #120 ml 11/24/19 01/21/21 Rx meclizine 25 mg tablet 25 mg PO TID PRN #90 tab 12/12/19 01/21/21 Rx atorvastatin 40 mg tablet 40 mg PO HS #90 tab 04/29/20 01/21/21 Rx aripiprazole 5 mg tablet 5 mg PO HS #90 tab 06/25/20 01/21/21 Rx metformin 500 mg tablet,extended 1,000 mg PO BID #360 tab 11/21/20 01/21/21 Rx release 24 hr isosorbide mononitrate 60 mg 120 mg PO QAM tab 12/05/20 01/21/21 History tablet,extended release 24 hr trazodone 100 mg tablet 300 mg PO HS #270 tab 12/26/20 01/21/21 Rx glimepiride 1 mg tablet 1 mg PO .COMPLEX tab 12/31/20 01/21/21 History ipratropium bromide 42 mcg (0.06 2 spray INTRANASAL BID PRN #15 ml 01/01/21 01/21/21 Rx %) nasal spray biotin 5,000 mcg PO HS 01/02/21 01/21/21 History cholecalciferol (vitamin D3) 50 mcg PO HS 01/02/21 01/21/21 History clopidogrel [Plavix] 75 mg PO QAM 01/02/21 01/21/21 History donepezil 5 mg PO QAM 01/02/21 01/21/21 History loratadine [Claritin] 10 mg PO QAM 01/02/21 01/21/21 History omeprazole 40 mg PO QAM 01/02/21 01/21/21 History torsemide 40 - 60 mg PO QAM 01/02/21 01/21/21 History venlafaxine 225 mg PO HS 01/02/21 01/21/21 History oxycodone-acetaminophen [Percocet] 1 - 2 tab PO .q4-6h PRN #6 tab 01/06/21 01/21/21 Rx metoprolol tartrate 50 mg tablet 50 mg PO BID #180 tab 01/18/21 01/21/21 Rx ferrous sulfate 325 mg (65 mg 325 mg PO DAILY 01/21/21 01/21/21 History iron) tablet Past Med/Surg History Medical History Abnormal PET scan of lung Anemia Arthritis Bipolar affective disorder CAD (coronary artery disease) s/p AMINTA x 2 09/2015 Chest pain awoke with severe chest pain on November 02, 2020. Seen by cardio (Haseeb), had negative/normal stress echo. 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 Metastatic colorectal cancer Mild cognitive impairment Neurologic gait dysfunction Obstructive sleep apnea cpap Port-A-Cath in place Pulmonary nodules Right kidney mass Scoliosis Shortness of breath Stroke x2--09/1988 and smaller stroke in 1991--uses cane to ambulate--no neurologist now 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 Vertigo Surgical History [place] [facility] [place] gastric bypass (~2003) History of AAA (abdominal aortic aneurysm) repair per pt was leaking after 1st repair and had second done [place] [facility] [place] of basal cell carcinoma excision History of bilateral cataract extraction History of cardiac cath x2 @ [facility]--10/22/2015--1 AMINTA placed 09/24/2015--1 AMINTA placed History of colonoscopy with polypectomy History of esophagogastroduodenoscopy (EGD) History of heart artery stent x2 total---10/22/2015--1 AMINTA placed 09/24/2015--1 AMINTA placed History of needle biopsy on lymph node 11/2020 History of sinus surgery (~1969) History of squamous cell carcinoma excision History of tonsillectomy History of tooth extraction all teeth Hx of cholecystectomy Hx of transurethral resection of prostate x2 S/P lumbar fusion S/P lymph node biopsy Family History Mother Urinary bladder cancer Father Lead poisoning Other No family history of adverse response to anesthesia Social History Smoking Status: Former smoker Tobacco Type: Cigarettes packs per day: 4; Years Smoked: 38; Second Hand Exposure: No; Hx Alcohol Use: Yes Alcohol type: beer Hx Substance Use: No Preferred Language: Greek Communication Ability: Effective 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 Required: No Beliefs That Will Affect Care: None marital status: Current Living Situation: Spouse current occupational status: retired How many Children do You have: 2 Feels Safe at Home: Yes Physical Activity Frequency: Does not Exercise Seatbelt Use: always Assistive Devices: Cane, CPAP, Denture - Upper, Denture - Lower, Glasses and Hearing Aid - Bilateral Review of Systems Review of Systems: All systems reviewed & are unremarkable except as noted in HPI & below Physical Exam Physical Exam: PHYSICAL EXAM: General: pale, awake, alert, no apparent distress Head: Normocephalic, atraumatic ENT: PERRL, EOMI, no pharyngeal exudate, mucous membranes moist Neuro: AAO x 3, speech clear and appropriate, strength intact bilaterally 5/5, sensation intact and equal all extremities and dermatomes, no pronator drift Chest: equal rise and fall of the chest, no accessory muscle use, no heaves or thrills, diminished in the bases bilaterally, on 2LNC, Cardiac: Regular rate and rhythm, telemetry reviewed- tachycardic, skin warm dry, cap refill 3 seconds, peripheral pulses +2 no JVD, no murmur, trace lower extremity edema GI: NABS x 4 quadrants, soft, nontender to palpation, no rebound, guarding or tenderness : Spontaneously voiding, no pain, no CVA tenderness, Extremities: Normal inspection, no peripheral edema or erythema, calfs nontender to palpation Psych: Normal mood and affect Skin: no rash or erythema, band-aid over right thoracentesis site Results & Data Results & Data ([facility]) Vital Signs (Past 12 Hours) Vital Signs Temp Pulse Resp BP Pulse Ox 01/21/21 16:40 120 H 20 97 01/21/21 16:30 117 H 19 97 01/21/21 16:20 120 H 97 01/21/21 16:10 120 H 16 96 01/21/21 16:02 96 01/21/21 16:01 122 H 18 96 01/21/21 16:00 122 H 16 155/97 H 95 01/21/21 15:50 117 H 19 95 01/21/21 15:40 116 H 94 01/21/21 15:30 118 H 16 94 01/21/21 15:23 117 H 17 94 01/21/21 15:00 117 H 19 147/86 H 94 01/21/21 14:52 37.1 C 117 H 22 119/90 93 Laboratory Results Abnormal lab results 01/21/21 01/21/21 Range/Units 15:38 15:38 RBC 3.10 L (4.7-6.1) M/uL Hgb 7.8 L (14.0-18.0) g/dL Hct 24.8 L (42-52) % MCHC 31.5 L (32-36) g/dL RDW Coeff of Joe 15.6 H (11.5-14.5) % Lymph # (Auto) 0.67 L (1.2-3.4) K/uL Glucose 172 H (70-99) mg/dl Diagnostic Findings Chest X-Ray 01/21/21 16:28 XR chest 1V portable CLINICAL HISTORY: S/P Thoracentesis COMPARISON STUDY: 01/21/2021 FINDINGS: There is a right-sided A-Port catheter. The heart is mildly enlarged. There is aortic tortuosity/ectasia. There is pulmonary emphysema. There are bilateral pulmonary nodules. There is interval decrease in the size of the right pleural effusion status post thoracentesis. No pneumothorax is visualized.[ IMPRESSION: 1. No pneumothorax status post thoracentesis 2. Multiple bilateral pulmonary nodules 3. Pulmonary emphysema Electronically signed by: Babak Infante M.D. 01/21/2021 4:47 PM Medications Administered Discontinued Medications Ioversol (Optiray 320 125ml) 119 ml IV ONCE ONE Stop: 01/21/21 17:04 Last Admin: 01/21/21 17:04 Dose: 119 ml Documented by: [id number] ECG Additional Comments: Sinus tachycardia Abnormal QRS-T angle, consider primary T wave abnormality Abnormal ECG When compared with ECG of 23-OCT-2015 06:39, Vent. rate has increased BY 52 BPM Code Status & VTE Plan Code Status CODE: FULL VTE: SCD's, Heparin 5000 subq q8 VTE Prophylaxis Plan VTE Prophylaxis will be ordered: Yes Supervising Physician Co-Signing Physician Notes TRAFFIC SAFETY ADMINISTRATOR Supervision note: I have personally seen and examined the patient and discussed and verified the jimenez points of the history and physical along with the plan with OMERO Monteiro with the following exceptions and/or additions: Patient presents from pulmonology office with shortness of breath and noted to have fairly large pleural effusion and worsening anemia. Thoracentesis per formed in the ER by pulmonology. Patient feeling better since drainage but having some pain with deep inspiration when I saw him. Is ready to start chemotherapy. Reports last colonoscopy was 2 years ago, has not had an EGD. He was Hemoccult stool positive in the ER. No gross bleeding that he is noticed from anywhere. He is on aspirin and Plavix for history of CAD with stent and AAA stented History and ROS reviewed Vitals reviewed Gen: AAOx3, NAD HEENT: Anicteric sclerae, EOMI CV: RRR no mgr nl S1S2 Pulm: Diminished breath sounds at the right base, no wheezes crackles or rhonchi, Band-Aid in right mid back Abd: +BS soft NT ND no masses or hernias Ext: Trace pitting edema legs bilaterally, no calf tenderness Skin: No rashes, warm/dry Neuro: Full strength throughout Laboratory values and imaging reviewed ECG with sinus tachycardia at 116, telemetry also with sinus tachycardia rate consistently in the 1 teens 80-year-old male here with metastatic adenocarcinoma of colorectal primary, with large right-sided pleural effusion and worsening anemia causing dyspnea. Now status post thoracentesis-follow all pleural fluid studies, this could be malignant effusion versus infectious. He does have evidence of metastatic pulmonary as well as liver mets on PET scan Transfuse 1 unit PRBCs-consent obtained by myself in the ER. Follow CBC in the morning Consider GI consultation for EGD and colonoscopy. Does have a history of gastric bypass remotely. 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 E11.43; E11.65 Unstable angina I20.0 Benign essential hypertension I10 Obstructive sleep apnea G47.33 HLD (hyperlipidemia) E78.5 Hyperlipidemia type: unspecified Depression F32.9 Depression Type: major depressive disorder Major depression episode severity: unspecified Major depression recurrence: unspecified whether recurrent DVT prophylaxis Z29.9 (1) Anemia Anemia type: other cause Other causes of anemia: other cause, not classified Qualified Code(s): D64.89 - Other specified anemias (2) Depression Depression Type: major depressive disorder Major depression episode severity: unspecified Major depression recurrence: unspecified whether recurrent (3) Dyspnea Dyspnea type: unspecified Qualified Code(s): R06.00 - Dyspnea, unspecified (4) HLD (hyperlipidemia) Hyperlipidemia type: unspecified Qualified Code(s): E78.5 - Hyperlipidemia, unspecified
[2021-01-21 17:02] LABS: Glucose Pleural Fluid 192 mg/dl
[2021-01-21] MEDS ORDERED: OPTIRAY 320 125ml IV ONE (17:03)
[2021-01-21 17:08] LABS: LDH Pleural Fluid 579 U/L; Total Protein Pleural Fluid 4.5 g/dl
[2021-01-21 17:25] LABS: Appearance Pleural Fluid CLOUDY; Color Pleural Fluid RED; RBC Pleural Fluid (A) 76000 /uL; Source Pleural Fluid RIGHT LUNG; WBC Pleural Fluid (A) 3338 /uL
[2021-01-21 18:21] LABS: Basophils, Fluid 1 %; Eosinophils, Fluid 1 %; Lymphocytes, Fluid 31 %; Mono,Macrophage,Mesothelial 11 %; Neutrophils, Fluid 56 %
--- NOTE | 2021-01-21 18:22 | CT Scan Report ---
CT ANGIOGRAM OF THE CHEST CLINICAL HISTORY: Shortness of breath. Chest pain. Metastatic colon carcinoma. COMPARISON STUDY: Chest x-ray performed the same day TECHNIQUE: Following the IV administration of 119 mL of Optiray, CT angiogram of the thorax was perfo rmed from the thoracic inlet to the lung bases utilizing the pulmonary embolus protocol. Images are r eviewed in the axial, sagittal, and coronal planes. IV contrast was administered without complication . MIP imaging was performed. A dose lowering technique was utilized adhering to the principles of [place] HINA. CT DOSE: 767.60 mGy.cm FINDINGS: There are multiple hepatic masses suspicious for metastatic disease. There is pathologic mediastinal and hilar lymphadenopathy. An index right paratracheal lymph node reilly sures 22 mm. There is mild ectasia of the ascending thoracic aorta which measures 38 mm. There is atheromatous mary jane que within the aortic arch and descending thoracic aorta. 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 a there is an equivocal tiny subsegmental left lower lobe pulmonary artery filling defect. There is a small right pleural effusion and trace left pleural effusion. There is severe pulmonary emphysema. There are multiple bilateral pulmonary nodules, suspicious for m etastatic disease. The largest measures 27 mm. There is nodular pleural thickening suspicious for ple ural metastasis. IMPRESSION: 1. Multiple hepatic masses suspicious for hepatic metastasis 2. Pathologic mediastinal and hilar lymphadenopathy suspicious for metastatic lymphadenopathy 3. Multiple bilateral pulmonary nodules suspicious for metastatic disease 4. Small right pleural effusion and trace left pleural effusion 5. Nodular pleural thickening suspicious for metastatic pleural disease 6. Equivocal tiny subsegmental left lower lobe pulmonary embolism 7. 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 Atheromatous plaque within the aort ic arch and descending thoracic aorta. ACT 112: Negative or not required by law. Electronically signed by: Babak Infante M.D. 01/21/2021 6:20 PM
[2021-01-21] MEDS ORDERED: oxyCODONE/ACETAMINOPHEN 5mg/325mg TAB PO STA (18:41)
[2021-01-21] MEDS ORDERED: SODIUM CHLORIDE 0.9% 250 ML IV PRN ×2 (19:23→20:28)
[2021-01-21] MEDS ORDERED: CARBOHYDRATES FOR HYPOGLYCEMIA PO PRN (19:23)
[2021-01-21] MEDS ORDERED: DEXTROSE 50% 50 ML SYRINGE IV PRN (19:23)
[2021-01-21] MEDS ORDERED: GLUCOSE 10 TABS/TUBE PO PRN (19:23)
[2021-01-21] MEDS ORDERED: NITROGLYCERIN 60 SPRAYS/4.9 GM SPRAY PRN (19:23)
[2021-01-21] MEDS ORDERED: GLUCAGON FOR INJ 1 MG VIAL SQ PRN (19:23)
[2021-01-21] MEDS ORDERED: GLUCOSE 40% GEL 15 GM TUBE PO PRN (19:23)
[2021-01-21] MEDS ORDERED: ACETAMINOPHEN 325 MG TAB PO PRN (19:23)
[2021-01-21] MEDS ORDERED: IPRATROPIUM BROMIDE NASAL SPRAY 0.06% 15ML NAE PRN (19:23)
[2021-01-21] MEDS ORDERED: MECLIZINE HCL 25 MG TAB PO PRN (19:41)
[2021-01-21] MEDS ORDERED: NITROGLYCERIN 60 SPRAYS/4.9 GM SPRAY SL PRN (19:50)
[2021-01-21] MEDS: CYANOCOBALAMIN 500 MCG TABLET (VITAMIN B-12) PO SCH (20:43)
[2021-01-21] MEDS: ARIPiprazole 5 MG TAB PO SCH (20:44)
[2021-01-21] MEDS: VENLAFAXINE HCL XR 75 MG CAPXR PO SCH (20:44)
[2021-01-21] MEDS: METOPROLOL TARTRATE 50 MG TAB PO SCH (20:44)
[2021-01-21] MEDS: CHOLECALCIFEROL 1,000 UNITS 25 MCG TAB PO SCH (20:44)
[2021-01-21] MEDS: ATORVASTATIN 40 MG TAB PO SCH (20:44)
[2021-01-21] MEDS: PANTOprazole 40 MG in SYRINGE 0 ML IV SCH (20:45)
[2021-01-21] MEDS ORDERED: NON-FORMULARY MEDICATION (Biotin 5,000 mcg Tablet,Disintegrating) PO SCH (21:00)
[2021-01-21] MEDS: HEPARIN SOD 5,000 UNIT/0.5 ML VIAL SQ SCH (21:42)
[2021-01-21] MEDS: INSULIN ASPART 100 UNITS/ML 3 ML PEN SC SCH (21:43)
[2021-01-22] MEDS: HEPARIN SOD 5,000 UNIT/0.5 ML VIAL SQ SCH (05:21)
[2021-01-22] MEDS: oxyCODONE/ACETAMINOPHEN 5mg/325mg TAB PO PRN ×3 (06:46→22:24)
[2021-01-22 07:46] LABS: Basophils # (auto) 0.07 K/uL (0-0.2); Basophils % (auto) 1.2 %; Eosinophils # (auto) 0.32 K/uL (0-0.5); Eosinophils % (auto) 5.4 %; Hematocrit (blood only) 28.9 % (42-52); Hemoglobin 9.1 g/dL (14.0-18.0); Immature Granulocytes # (auto) 0.01 K/uL (0.00-0.02); Immature Granulocytes % (auto) 0.2 %; Lymphocytes # (auto) 0.82 K/uL (1.2-3.4); Lymphocytes % (auto) 13.9 %; Mean Corpuscular Hemoglobin 26.1 pg (25-34); Mean Corpuscular Hgb Conc 31.5 g/dL (32-36); Mean Platelet Volume 8.5 fL (7.4-10.4); Monocytes # (auto) 0.67 K/uL (0.11-0.59); Monocytes % (auto) 11.4 %; Neutrophils % (auto) 67.9 %; Platelet Count 312 K/uL (130-400); RDW Coefficient of Variation 15.7 % (11.5-14.5); RDW Standard Deviation 47.2 fL (36.4-46.3); Red Blood Count 3.48 M/uL (4.7-6.1); White Blood Count 5.89 K/uL (4.8-10.8)
--- NOTE | 2021-01-22 07:57 | XRay Report ---
XR chest 1V portable CLINICAL HISTORY: evaluate pleural effusion, infiltrates. Metastatic colon cancer. COMPARISON STUDY: Chest radiograph and chest CT January 21, 2021. FINDINGS: Numerous pulmonary nodules are noted. These are better depicted on recent chest CT. Adenopa thy within the chest is also better depicted on that exam. A right internal jugular [id number] is in place. Cardiomediastinal silhouette is stable. There is no pneumothorax. A small right pleural eff usion is similar to prior exam. Right basilar opacity has increased. Underlying emphysema is noted. IMPRESSION: 1. Small right pleural effusion, similar to prior exam. Increase in right basilar airspace opacity. 2. Pulmonary metastases and thoracic lymphadenopathy better depicted on chest CT. ACT 112: Negative or not required by law. Electronically signed by: Lalit Grimaldo M.D. 01/22/2021 7:56 AM
[2021-01-22 08:24] LABS: BUN Creatinine Ratio 14.6 (10-20); Calcium 8.4 mg/dl (8.5-10.1); Creatinine Clr Calc Pharmacy 95.3 ml/min; Est GFR (African American) 90.8 ml/min; Est GFR (Non-African American) 78.4 ml/min; Magnesium 2.2 mg/dl (1.8-2.4); Potassium 4.1 mmol/L (3.5-5.1)
[2021-01-22] MEDS: ASPIRIN 81 MG ECTAB PO SCH (08:24)
[2021-01-22] MEDS: DONEPEZIL HCL 5 MG TAB PO SCH (08:24)
[2021-01-22] MEDS: PANTOprazole 40 MG in SYRINGE 0 ML IV SCH (08:25)
[2021-01-22] MEDS: METOPROLOL TARTRATE 50 MG TAB PO SCH ×2 (08:25→22:25)
[2021-01-22] MEDS: LORATADINE 10 MG TAB PO SCH (08:25)
[2021-01-22] MEDS: FERROUS SULFATE 325 MG TAB PO SCH (08:25)
[2021-01-22] MEDS: TORSEMIDE 20 MG TAB PO SCH (08:26)
[2021-01-22] MEDS: INSULIN ASPART 100 UNITS/ML 3 ML PEN SC SCH ×4 (08:27→23:46)
--- NOTE | 2021-01-22 11:02 | Pulmonology Progress Note ---
Date of Service January 22, 2021 Assessment & Plan (1) Shortness of breath: (2) Pleural effusion: Impression: 80-year-old male with history of metastatic colorectal cancer presenting now with new pleural effusion, hypoxemia, and tachycardia. He is status post ultrasound-guided thoracentesis with 1.6 L removed yesterday with improvement in symptoms. Cytology is pending but the fluid was bloody and concerning for underlying malignancy. His CT scan did demonstrate a small subsegmental filling defect consistent with PE as well as advancing malignancy compared to prior CT scan from 2 months ago. Recommendations: 1. Pleural effusion: Suspect malignancy. Await cytology. The pleural fluid did have a positive Gram stain which raises the possibility of concomitant infection. He is afebrile and his white blood cell count has been normal. Nevertheless I think placing him on antibiotics in the form of Augmentin and following the pleural fluid cultures is reasonable at this point time. Would follow clinically at this point time. If the effusion could reaccumulate, options might include serial thoracentesis versus placement of a Pleurx catheter. 2. Dyspnea: Suspect this is related to the pleural effusion. Although the small subsegmental PE could also be contributing. He also has advancing malignancy. 3. Hypoxemia: Appears resolved 4. Metastatic colorectal cancer: The patient's CT angiogram shows significant progression compared to prior CT scan from 2 months ago with development of enlarged mediastinal nodes, enlarging pulmonary nodules, and more prominent hepatic metastases. The patient has multiple insightful questions about his disease. He is not sure that he wants to fight to the very end. He is unclear what response to expect from chemotherapy. He is scheduled to meet with medical oncology later today. I broached the prospect of palliative care and the patient is very interested and would like to meet with them today. Hospice may certainly be an alternative. He asks what to expect if he were to not undergo chemotherapy. I advised him that patients with malignant pleural effusions typically have a life expectancy measured in months, usually less than 6months without therapy. 5. Subsegmental PE: Given his hypercoagulable state and advancing malignancy, recommend therapy. Will initiate Lovenox 1 mg/kg subcu every 12. Discontinue subcu heparin. Can transition to DOAC at discharge if okay with hematology oncology. Would not recommend Coumadin. (3) Abnormal CT scan of lung: (4) Pulmonary embolism: Admission and Anticipated Discharge Date Admission Date: January 21, 2021 Subjective Patient seen and examined. He thinks his breathing is somewhat improved after the thoracentesis but overall he is feeling "rough". He denies chest pain palpitations. No significant lower extremity edema. No nausea vomiting emesis or loose stools. He has a poor appetite. He is off oxygen currently. He did receive a transfusion yesterday. He was to initiate chemotherapy today. Physical Exam Constitutional: WD/WN, vitals as above Neck: trachea midline, no thyromegaly Respiratory: normal respiratory effort; no respiratory distress and no labored breathing Cardiovascular: RRR, no murmur, no edema Gastrointestinal (Abdomen): normal bowel sounds, soft, nontender, no hepatosplenomegaly Musculoskeletal: Extremities: extremities normal to inspection Skin: no rashes, warm and dry Lymphatic: no cervical lymphadenopathy Results & Data Results & Data ([facility]) Vital Signs (Past 12 Hours) Vital Signs Temp Pulse Pulse Resp BP BP Pulse Ox 01/22/21 09:18 19 01/22/21 07:23 36.6 C 106 H 18 131/86 96 01/22/21 03:55 36.5 C 102 H 18 137/81 92 01/22/21 00:13 36.4 C L 67 18 106/67 93 01/21/21 23:45 70 01/21/21 23:40 36.3 C L 70 20 103/68 91 Laboratory Results 01/22/21 07:16 01/22/21 07:16 Pleural fluid studies: Cytology pending Cell count: 56% neutrophils, 31% lymphocytes, 1% eosinophils, 1% basophils, 11% monocytic cells Pleural pH 7.39 Pleural LDH 579 Pleural glucose 192 Pleural fluid Gram stain and culture showed many PMNs with a few gram-positive cocci. Diagnostic Findings CT angiogram from yesterday was independently reviewed. This was compared to prior CT scan from October 2020. The patient has had marked progression of his metastatic disease with enlarging mediastinal lymph nodes as well as multiple pulmonary nodules and the right pleural effusion. Liver metastases also appeared more apparent and extensive. A small subsegmental PE/filling defect was identified. Chest x-ray 01/22/2021 was reviewed and compared to prior x-ray. There is hazy opacity at the left lung base suspicious for atelectasis or residual pleural effusion. No pneumothorax. PG Care Time/CCT Total # of Minutes Spent Total Time Spent with Patient: Total time spent is greater than 50% in coordination of care (as documented) at patient's floor/unit and/or counseling patient: Coding Level of Care Code 23008 Subseq Hosp Care Lvl 3 Diagnoses Shortness of breath R06.02 Pleural effusion J90 [address] scan of lung R91.8 Pulmonary embolism I26.99
--- NOTE | 2021-01-22 11:32 | Hospitalist Progress Note ---
Date of Service January 22, 2021 Assessment & Plan (1) Shortness of breath: Nacho Bland is a 80 yo male with complex PMHx that includes metastatic colorectal carcinoma (to lungs, chest, liver, kidneys), COPD, HLD, GERD and Depression/Bipolar who was admitted to [facility] on 01/21 for shortness of breath in the context of right bloody pleural effusion, subsegmental PE, and pulmonary mets. Right Pleural Effusion Shortness of breath x1 week, 1600cc of bloody fluid drained via thoracentesis. Pleural studies showing 20965 RBCs as well as high LDH and protein ratios - bloody exudative effusion likely due to malignancy. However initial gram stain positive for GPCs - concomitant infection cannot be ruled out. - Pulmonary on board - appreciate recs - started Augmentin 875/125mg PO BID - pleural fluid cultures pending - adjust abx based on results Subsegmental Pulmonary Embolism With SOB x1 week as above. Per CTA chest on 01/21, LLL subsegmental PE. Patient is hypercoagulable 2/2 cancer. - Pulm on board as stated above - started on therapeutic Lovenox dosing - plan for transition to DOAC on discharge if okay with oncology Metastatic Colon Adenocarcinoma Confirmed as primary colon cancer, with extensive metastasis to chest/lung, liver and kidneys. Had been scheduled to start chemotherapy today, but patient is also interested in speaking to Palliative about other options. - Oncology consulted - appreciate recs - Palliative consulted for long-term goals of care - appreciate recs Acute Blood Loss Anemia With SOB x1 week as above. Extensive blood loss into pleural space - s/p tho racentesis as above, as well as 1 unit pRBCs. - Hgb 7.8 --> 9.1 after pRBCs - appropriate increase - FOBT positive but this is expected given colon cancer, no overt GI bleeding - home Plavix held COPD Stable without exacerbation. - continue home Ipratropium JONATHAN - continue home CPAP QHS CAD/HTN/HLD - continue home Lopressor 50mg PO BID, Torsemide 40mg PO daily, Imdur 60mg PO daily, Aspirin 81mg PO daily, Atorvastatin 40mg PO QHS, Fenofibrate 134mg PO QAM H/o Gastric Bypass - continue Iron/B12 supplementation Depression/Bipolar - continue home Aripiprazole 5mg PO QHS and Venlafaxine 225mg PO QHS GERD - continue Protonix 40mg PO daily per hospital formulary Mild Cognitive Impairment - continue home Donepezil 5mg PO QAM FEN/GI: DM2 diet, DVT Prophylaxis: Therapeutic Lovenox Code Status: FULL CODE Disposition: PCU with tele (2) Pleural effusion: (3) Metastatic colorectal cancer: (4) Pulmonary embolism: (5) COPD (chronic obstructive pulmonary disease): (6) Depression: (7) HLD (hyperlipidemia): (8) Anemia: (9) JONATHAN (obstructive sleep apnea): (10) Chronic GERD: (11) Bipolar affective disorder: (12) Pulmonary nodules: Admission and Anticipated Discharge Date Admission Date: January 21, 2021 Supervising Physician Co-Signing Physician Notes Resident Physician Supervision Note: I independently interviewed and examined the patient and verified the jimenez history and physical, reviewed labs and image studies and agree with resident Dr. Otero findings and care plan. Subjective No acute events overnight. Hemodynamically stable on room air, without hypoxia. Patient reports SOB is almost completely resolved s/p thoracentesis. Eating/drinking well and slept well. No concerns. Review of Systems Review of Systems: Denies fever/chills, chest pain, dizziness/lightheadedness, cough, N/V, abdominal pain, rash. Physical Exam Physical Exam: General: A&Ox3. NAD. Cooperative. HEENT: Atraumatic, normocephalic. Pulm: Decreased air entry bilaterally. -wheezes, -rales, -rhonchi. Symmetrical chest rise. No increase work of breathing. No respiratory distress. Cardiac: RRR, -mrg. Radial pulses intact and symmetrical. Abdominal: soft, non-tender, non-distended, BS x 4 Skin: warm, dry, no rash Results & Data Results & Data ([facility]) Vital Signs (Past 12 Hours) Vital Signs Temp Pulse Pulse Resp BP BP Pulse Ox 01/22/21 09:18 19 01/22/21 08:00 108 H 01/22/21 07:23 36.6 C 106 H 18 131/86 96 01/22/21 03:55 36.5 C 102 H 18 137/81 92 01/22/21 00:13 36.4 C L 67 18 106/67 93 01/21/21 23:45 70 01/21/21 23:40 36.3 C L 70 20 103/68 91 Resident Activity Tracking Resident Involvement: Resident Care Provided Care Provided: Adult Hospital Medicine (1) Anemia Anemia type: other cause Other causes of anemia: other cause, not classified Qualified Code(s): D64.89 - Other specified anemias (2) Depression Depression Type: major depressive disorder Major depression episode severity: unspecified Major depression recurrence: unspecified whether recurrent (3) HLD (hyperlipidemia) Hyperlipidemia type: unspecified Qualified Code(s): E78.5 - Hyperlipidemia, unspecified (4) COPD (chronic obstructive pulmonary disease) COPD type: unspecified COPD Qualified Code(s): J44.9 - Chronic obstructive pulmonary disease, unspecified
[2021-01-22] MEDS: ENOXAPARIN INJ 120 MG/0.8 ML SYR SQ SCH ×2 (11:55→22:26)
[2021-01-22] MEDS: AMOXICILLIN/CLAVULANATE 875 MG TAB PO SCH (16:43)
--- NOTE | 2021-01-22 16:57 | Palliative Care Consultation ---
Date of Consultation January 22, 2021 Assessment & Plan (1) Chest pain: Currently controlled with percocet as needed. He expressed concern that this will worsen over time. I assured him that we have many tools to provide pain relief and help maintain his comfort. (2) Dyspnea: Improved. Dyspnea type: unspecified Qualified Code(s): R06.00 - Dyspnea, unspecified (3) Palliative care encounter: Mr. Bland had a discussion with Dr. Alan earlier today and appreciated his honesty and compassionate delivery. He understands that his prognosis is poor and that his life expectancy is likely months, with or without treatment. He had just talked with his about this information when I arrived. He tells me that he is not afraid to but is worried about the impact on his family. He feels that his has good support and will be able to manage ok after his . He and his are sharing memories of family stories and doing life review. He had been anxious to start his chemotherapy and is wondering when that will begin. We talked about what he would want his remaining days to look like and he tells me that he would want to be at home with his family. He has strong lucita which is helping him with this difficult news. He asked about when it would be time for hospice and we talked about the hospice benefit which would be appropriate if he felt that he did not want to pursue treatment for his cancer. He indicates that he would like to proceed with chemotherapy and feels that he will know when he has had enough and is ready to transition to a comfort directed approach to his care. Palliative care will follow to assist with support and goals of care. (4) Pulmonary embolism: (5) COPD (chronic obstructive pulmonary disease): COPD type: unspecified COPD Qualified Code(s): J44.9 - Chronic obstructive pulmonary disease, unspecified (6) GI bleed: GI bleed type/associated pathology: unspecified gastrointestinal hemorrhage type Qualified Code(s): K92.2 - Gastrointestinal hemorrhage, unspecified (7) Metastatic colorectal cancer: History of Present Illness Reason for Consultation: goals of care Requesting Physician: Dr. Alan Attending Physician: Mi Funes MD History of Present Illness 80 yo gentleman diagnosed in September of this year with adenocarcinoma of the colon. He has metastatic pulmonary nodules, mediastinal and infraclavicular nodules as well and right renal and liver mets. He was due to start FOLFOX and avastin therapy today but was admitted to the hospital with progressive shortness of breath. He was noted to have a right pleural effusion and had pleurocentesis of 1.[address] of exudative fluid. CT of the chest also shows a LLL subsegmental embolism. He has had progressive anemia with heme positive stool and was transfused during this hospitalization. He has had some pain in his right upper abdomen, particularly with inspiration. He has been taking oxycodone/APAP 5/325 which relieves pain to a tolerable level. He denies feeling short of breath at this time. Allergies Allergy/AdvReac Type Severity Reaction Status Date / Time Cephalosporins Allergy Intermediate FEVER/CHILL Verified 01/21/21 13:25 S diazepam AdvReac Severe DEPRESSION Verified 01/21/21 13:25 midazolam AdvReac Severe suicidal Verified 01/21/21 13:25 depression warfarin AdvReac Severe CAUSES Verified 01/21/21 13:25 TOXICITY lisinopril AdvReac Mild COUGH Verified 01/21/21 13:25 Home Medications Medication Instructions Recorded Confirmed Type lancets 33 gauge #30 ea 01/15/19 01/21/21 Rx nitroglycerin 400 mcg/spray 1 sprays SL Q5M PRN #4.9 gm 01/15/19 01/21/21 Rx translingual triamcinolone acetonide 0.1 % 1 appln TOP BID PRN 02/14/19 01/21/21 History topical cream aspirin 81 mg chewable tablet 81 mg PO QAM 02/23/19 01/21/21 History cyanocobalamin (vitamin B-12) 1,000 mcg PO HS 02/23/19 01/21/21 History 1,000 mcg tablet multivitamin 1 tab PO QPM #0 02/23/19 01/21/21 History peg 400-propylene glycol 0.4 %-0.3 1 drops OP Q4H PRN ml 02/23/19 01/21/21 History % eye drops blood sugar diagnostic #50 ea 04/13/19 01/21/21 Rx fenofibrate micronized 134 mg 134 mg PO QAM 04/27/19 01/21/21 History capsule ketoconazole 2 % shampoo 1 appln TOPICAL 2XWK #120 ml 11/24/19 01/21/21 Rx meclizine 25 mg tablet 25 mg PO TID PRN #90 tab 12/12/19 01/21/21 Rx atorvastatin 40 mg tablet 40 mg PO HS #90 tab 04/29/20 01/21/21 Rx aripiprazole 5 mg tablet 5 mg PO HS #90 tab 06/25/20 01/21/21 Rx metformin 500 mg tablet,extended 1,000 mg PO BID #360 tab 11/21/20 01/21/21 Rx release 24 hr isosorbide mononitrate 60 mg 120 mg PO QAM tab 12/05/20 01/21/21 History tablet,extended release 24 hr trazodone 100 mg tablet 300 mg PO HS #270 tab 12/26/20 01/21/21 Rx glimepiride 1 mg tablet 1 mg PO .COMPLEX tab 12/31/20 01/21/21 History ipratropium bromide 42 mcg (0.06 2 spray INTRANASAL BID PRN #15 ml 01/01/21 01/21/21 Rx %) nasal spray biotin 5,000 mcg PO HS 01/02/21 01/21/21 History cholecalciferol (vitamin D3) 50 mcg PO HS 01/02/21 01/21/21 History clopidogrel [Plavix] 75 mg PO QAM 01/02/21 01/21/21 History donepezil 5 mg PO QAM 01/02/21 01/21/21 History loratadine [Claritin] 10 mg PO QAM 01/02/21 01/21/21 History omeprazole 40 mg PO QAM 01/02/21 01/21/21 History torsemide 40 - 60 mg PO QAM 01/02/21 01/21/21 History venlafaxine 225 mg PO HS 01/02/21 01/21/21 History oxycodone-acetaminophen [Percocet] 1 - 2 tab PO .q4-6h PRN #6 tab 01/06/21 01/21/21 Rx metoprolol tartrate 50 mg tablet 50 mg PO BID #180 tab 01/18/21 01/21/21 Rx ferrous sulfate 325 mg (65 mg 325 mg PO DAILY 01/21/21 01/21/21 History iron) tablet Patient History Medical History Abnormal PET scan of lung Anemia Arthritis Bipolar affective disorder CAD (coronary artery disease) s/p AMINTA x 2 09/2015 Chest pain awoke with severe chest pain on November 02, 2020. Seen by cardio (Haseeb), had negative/normal stress echo. 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 Metastatic colorectal cancer Mild cognitive impairment Neurologic gait dysfunction Obstructive sleep apnea cpap Port-A-Cath in place Pulmonary nodules Right kidney mass Scoliosis Shortness of breath Stroke x2--09/1988 and smaller stroke in 1991--uses cane to ambulate--no neurologist now 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 Vertigo Surgical History H/O abdominal aortic aneurysm repair @ [facility] 2002 H/O gastric bypass (~2003) History of AAA (abdominal aortic aneurysm) repair per pt was leaking after 1st repair and had second done 2003 @ [facility] History of basal cell carcinoma excision History of bilateral cataract extraction History of cardiac cath x2 @ [facility]--10/22/2015--1 AMINTA placed 09/24/2015--1 AMINTA placed History of colonoscopy with polypectomy History of esophagogastroduodenoscopy (EGD) History of heart artery stent x2 total---10/22/2015--1 AMINTA placed 09/24/2015--1 AMINTA placed History of needle biopsy on lymph node 11/2020 History of sinus surgery (~1969) History of squamous cell carcinoma excision History of tonsillectomy History of tooth extraction all teeth Hx of cholecystectomy Hx of transurethral resection of prostate x2 S/P lumbar fusion S/P lymph node biopsy Family History Mother Urinary bladder cancer Father Lead poisoning Other No family history of adverse response to anesthesia Social History Smoking Status: Former smoker Tobacco Type: Cigarettes packs per day: 4; Years Smoked: 38; Second Hand Exposure: No; Hx Alcohol Use: Yes Alcohol type: beer Hx Substance Use: No Preferred Language: [place] Communication Ability: Effective Seamless Hosiery Knitter Required: No Beliefs That Will Affect Care: None marital status: Current Living Situation: Spouse current occupational status: retired How many Children do You have: 2 Feels Safe at Home: Yes Physical Activity Frequency: Does not Exercise Seatbelt Use: always Assistive Devices: Cane and CPAP Review of Systems Review of Systems: [place] Symptom Assessment Scale Pain1/3 Dyspnea 0/3 Drowsiness 0/3 Anxiety 2/3 Nausea 0/3 Palliative Performance Score 40% Physical Exam Constitutional: no acute distress Respiratory: normal respiratory effort; no labored breathing Cardiovascular: Rate/Rhythm: regular rate and regular rhythm Gastrointestinal (Abdomen): Inspection/Auscultation: abdomen not distended Musculoskeletal: Extremities: extremities normal to inspection Neurologic: awake; not confused Psychiatric: Orientation: alert and oriented x 3 Affect: + tearful affect Results & Data ([facility]) Vital Signs (Past 12 Hours) Vital Signs Temp Pulse Pulse Resp BP Pulse Ox 01/22/21 16:24 98.2 F 108 H 18 150/91 H 95 01/22/21 11:57 97.3 F L 98 H 18 134/83 96 01/22/21 09:18 19 01/22/21 08:00 108 H 01/22/21 07:23 97.9 F 106 H 18 131/86 96 PG Care Time/CCT Total # of Minutes Spent Total Time Spent with Patient: Total time spent is greater than 50% in coordination of care (as documented) at patient's floor/unit and/or counseling patient: total time spent 75 minutes with more than 50% of time spent on prognosis, goals of care, symptom management, patient and family education. Coding Level of Care Code 73782 Inpt Consult Level 3 Diagnoses Chest pain R07.9 Dyspnea R06.00 Dyspnea type: unspecified Palliative care encounter Z51.5 Pulmonary embolism I26.99 COPD (chronic obstructive pulmonary disease) J44.9 COPD type: unspecified COPD GI bleed K92.2 GI bleed type/associated pathology: unspecified gastrointestinal hemorrhage type Metastatic colorectal cancer C19
[2021-01-22] MEDS: VENLAFAXINE HCL XR 75 MG CAPXR PO SCH (22:25)
[2021-01-22] MEDS: ARIPiprazole 5 MG TAB PO SCH (22:25)
[2021-01-22] MEDS: CYANOCOBALAMIN 500 MCG TABLET (VITAMIN B-12) PO SCH (22:25)
[2021-01-22] MEDS: ATORVASTATIN 40 MG TAB PO SCH (22:26)
[2021-01-22] MEDS: CHOLECALCIFEROL 1,000 UNITS 25 MCG TAB PO SCH (22:26)
[2021-01-23] MEDS: oxyCODONE/ACETAMINOPHEN 5mg/325mg TAB PO PRN (04:46)
[2021-01-23 06:23] LABS: Basophils # (auto) 0.06 K/uL (0-0.2); Basophils % (auto) 0.9 %; Eosinophils # (auto) 0.42 K/uL (0-0.5); Eosinophils % (auto) 6.2 %; Hemoglobin 9.7 g/dL (14.0-18.0); Immature Granulocytes # (auto) 0.01 K/uL (0.00-0.02); Immature Granulocytes % (auto) 0.1 %; Lymphocytes # (auto) 0.89 K/uL (1.2-3.4); Lymphocytes % (auto) 13.1 %; Mean Corpuscular Hemoglobin 25.5 pg (25-34); Mean Corpuscular Hgb Conc 31.3 g/dL (32-36); Mean Corpuscular Volume 81.4 fL (80-100); Mean Platelet Volume 8.1 fL (7.4-10.4); Monocytes # (auto) 0.84 K/uL (0.11-0.59); Monocytes % (auto) 12.4 %; Neutrophils # (auto) 4.55 K/uL (1.4-6.5); Neutrophils % (auto) 67.3 %; Platelet Count 344 K/uL (130-400); RDW Coefficient of Variation 15.6 % (11.5-14.5); RDW Standard Deviation 45.8 fL (36.4-46.3); Red Blood Count 3.81 M/uL (4.7-6.1); White Blood Count 6.77 K/uL (4.8-10.8)
[2021-01-23 06:57] LABS: BUN Creatinine Ratio 14.1 (10-20); Calcium 9.1 mg/dl (8.5-10.1); Creatinine Clr Calc Pharmacy 66.2 ml/min; Est GFR (African American) 67.4 ml/min; Est GFR (Non-African American) 58.2 ml/min; Potassium 3.8 mmol/L (3.5-5.1)
[2021-01-23] MEDS ORDERED: HEPARIN 100 UNIT/ML 5ML FLUSH FLUSH PRN (08:13)
[2021-01-23] MEDS: AMOXICILLIN/CLAVULANATE 875 MG TAB PO SCH (08:22)
[2021-01-23] MEDS: METOPROLOL TARTRATE 50 MG TAB PO SCH (08:24)
[2021-01-23] MEDS: TORSEMIDE 20 MG TAB PO SCH (08:24)
[2021-01-23] MEDS: FERROUS SULFATE 325 MG TAB PO SCH (08:24)
[2021-01-23] MEDS: DONEPEZIL HCL 5 MG TAB PO SCH (08:24)
[2021-01-23] MEDS: LORATADINE 10 MG TAB PO SCH (08:24)
[2021-01-23] MEDS: ASPIRIN 81 MG ECTAB PO SCH (08:24)
[2021-01-23] MEDS: INSULIN ASPART 100 UNITS/ML 3 ML PEN SC SCH ×2 (08:31→12:24)
[2021-01-23] MEDS ORDERED: ONDANSETRON INJ 2 MG/ML 2 ML VIAL IV PRN (08:38)
[2021-01-23] MEDS ORDERED: PANTOprazole 40 MG TAB PO SCH (09:00)
--- NOTE | 2021-01-23 10:29 | Palliative Care Progress Note ---
Date of Service January 23, 2021 Assessment & Plan (1) Chest pain: He reports adequate control with current meds, however, he has been using two tabs rather than one. Would consider oxycodone rather than percocet to avoid increasing doses of tylenol with liver mets. LBM 01/22. (2) Palliative care encounter: Long discussion with Mr. Bland about his plans for the future. Yesterday he had asked about how soon he could start chemotherapy. Today, he tells me that he is considering not doing chemotherapy. He is concerned not as much about how much time he has but what that time will be like for him. "I don't want to waste it". He has very strong lucita and spiritual support and tells me that he's ready to go home, not his house. He does feel that he has some unfinished business with his sons that is very important for him to resolve before his . One son will be arriving this weekend for a visit and he is hoping the other will come as well so that they can speak in person about his prognosis. He feels that he needs to talk with his and best friend before making a decision regarding chemotherapy. He asked again about how he will know when its time for hospice. We discussed hospice as the best support for him if he decides not to pursue chemotherapy. If he does want to do chemo, we talked about balancing risks and benefits and if he feels that side effects are limiting his quality of life, he can make that transition at any time. Palliative care could follow to help with symptom management and assist with that transition as an outpatient. (3) Pulmonary embolism: (4) COPD (chronic obstructive pulmonary disease): (5) Metastatic colorectal cancer: (6) Pleural effusion: Admission and Anticipated Discharge Date Admission Date: January 21, 2021 Subjective Had percocet 10/650 x 2 overnight for pain. He is awake but complains of feeling a little "fuzzy" this morning. He does report resting comfortably overnight. Review of Systems Review of Systems: [place] Symptom Assessment Scale Pain 1/3 Dyspnea 0/3 Anxiety 1/3 Fatigue 2/3 Nausea 0/3 Drowsiness 0/3 Palliative Performance Score 40% Physical Exam Constitutional: no acute distress ENMT: Mouth: oral mucous membranes not dry Respiratory: normal respiratory effort; no labored breathing Musculoskeletal: Extremities: extremities normal to inspection Skin: warm and dry Neurologic: awake; not confused Results & Data ([facility]) Vital Signs (Past 12 Hours) Vital Signs Temp Pulse Pulse Resp BP Pulse Ox 01/23/21 07:47 97.7 F 110 H 18 133/84 94 01/23/21 04:08 98.1 F 107 H 18 113/76 91 01/23/21 02:28 105 H 28 H 91 01/23/21 01:11 123 H 01/23/21 00:42 97.7 F 98 H 18 120/74 91 01/22/21 22:39 119 H 23 94 01/22/21 22:30 29 H PG Care Time/CCT Total # of Minutes Spent Total Time Spent with Patient: Total time spent is greater than 50% in coordination of care (as documented) at patient's floor/unit and/or counseling patient: total time spent 35 minutes with more than 50% of time spent on goals of care, hospice, addressing concerns about what to expect. Coding Level of Care Code 24091 Subseq Hosp Care Lvl 3 Diagnoses Chest pain R07.9 Palliative care encounter Z51.5 Pulmonary embolism I26.99 COPD (chronic obstructive pulmonary disease) J44.9 COPD type: unspecified COPD Metastatic colorectal cancer C19 Pleural effusion J90 (1) COPD (chronic obstructive pulmonary disease) COPD type: unspecified COPD Qualified Code(s): J44.9 - Chronic obstructive pulmonary disease, unspecified
--- NOTE | 2021-01-23 10:58 | Pulmonology Progress Note ---
Date of Service January 23, 2021 Assessment & Plan (1) Shortness of breath: (2) Pleural effusion: Impression: 80-year-old male with history of metastatic colorectal cancer presenting now with new pleural effusion, hypoxemia, and tachycardia. He is status post ultrasound-guided thoracentesis with 1.6 L removed yesterday with improvement in symptoms. Cytology is pending but the fluid was bloody and concerning for underlying malignancy. His CT scan did demonstrate a small subsegmental filling defect consistent with PE as well as advancing malignancy compared to prior CT scan from 2 months ago. Recommendations: 1. Pleural effusion: Suspect malignancy. Await cytology. The pleural fluid did have a positive Gram stain which raises the possibility of concomitant infection. He is afebrile and his white blood cell count has been normal. I have elected to place the patient on antibiotics and follow the cultures. Its unclear if this could be a contaminant. Recommend completing 10 days of antimicrobial therapy with follow-up imaging. If the effusion could reaccumulate, options might include serial thoracentesis versus placement of a Pleurx catheter. This can be addressed in the outpatient setting. 2. Dyspnea: Suspect this is related to the pleural effusion. Although the s mall subsegmental PE could also be contributing. He also has advancing malignancy. 3. Hypoxemia: Appears resolved 4. Metastatic colorectal cancer: Per palliative care and medical oncology 5. Subsegmental PE: Continue low molecular heparin with transition to DOAC at discharge. I do not anticipate additional pleural procedures for the patient. From a lung standpoint, he can be dismissed from the hospital. He should follow-up with Dr. Bray in 2-3 weeks with a follow up CXR. Please call if I can be of additional assistance. The plan was discussed with the patient. Questions were answered to the best my ability. He expressed understanding with the plan and is in agreement to pro ceed as outlined. (3) Abnormal CT scan of lung: (4) Pulmonary embolism: Admission and Anticipated Discharge Date Admission Date: January 21, 2021 Subjective Patient seen and examined. He sitting up. He does not appear in any distress. He is off oxygen. He is breathing comfortably. He states he was able to sleep last night but continues to have intermittent pain on his right side. He is not coughing or expectorating phlegm. He denies any lower extremity edema. No syn cope or presyncope. He did meet with palliative care at bedside yesterday. Unfortunately his oncol ogist appears to not be available to meet with him currently. He is contemplating whether or not he wants to initiate chemotherapy or pursue a palliative approach. Review of Systems Review of Systems: All systems reviewed & are unremarkable except as noted in HPI & below Physical Exam Constitutional: WD/WN, vitals as above Neck: trachea midline, no thyromegaly Respiratory: normal respiratory effort; no respiratory distress and no labored breathing Cardiovascular: RRR, no murmur, no edema Gastrointestinal (Abdomen): normal bowel sounds, soft, nontender, no hepatosplenomegaly Musculoskeletal: Extremities: extremities normal to inspection Skin: no rashes, warm and dry Lymphatic: no cervical lymphadenopathy Results & Data Results & Data ([facility] [place]) Vital Signs (Past 12 Hours) Vital Signs Temp Pulse Pulse Resp BP Pulse Ox 01/23/21 08:00 110 H 01/23/21 07:47 36.5 C 110 H 18 133/84 94 01/23/21 04:08 36.7 C 107 H 18 113/76 91 01/23/21 02:28 105 H 28 H 91 01/23/21 01:11 123 H 01/23/21 00:42 36.5 C 98 H 18 120/74 91 Laboratory Results 01/23/21 06:02 01/23/21 06:02 Diagnostic Findings No new imaging PG Care Time/CCT Total # of Minutes Spent Total Time Spent with Patient: Total time spent is greater than 50% in coordination of care (as documented) at patient's floor/unit and/or counseling patient: Coding Level of Care Code 00381 Subseq Hosp Care Lvl 3 Diagnoses Shortness of breath R06.02 Ple[address] eff[address] J90 [address] scan of lung R91.8 Pulmonary embolism I26.99 Time Spent (min) 35
--- NOTE | 2021-01-23 11:18 | Electrocardiogram Report ---
Test Reason : Blood Pressure : / mmHG Vent. Rate : 116 BPM Atrial Rate : 116 BPM P-R Int : 122 ms QRS Dur : 072 ms QT Int : 334 ms P-R-T Axes : 000 004 104 degrees QTc Int : 464 ms Low right atrial tachycardia Abnormal QRS-T angle, consider primary T wave abnormality Abnormal ECG When compared with ECG of 23-OCT-2015 06:39, Vent. rate has increased BY 52 BPM Confirmed by Jacob Giron ([id number]) on 01/23/2021 11:17:48 AM Referred By: REFERRED SELF Confirmed By:Jacob Giron
--- NOTE | 2021-01-23 12:33 | Discharge Summary ---
Date of Service January 23, 2021 Admission HPI Per Admitting Provider 80 YOM with past medical history of metastatic colon adenocarcinoma. Patient was originally being worked up for infraclavicular lymphadenopathy and pulmonary nodules with differential of birdie cell carcinoma versus colrectal primary. He underwent biopsy of lymph nodes as well as CTA of the chest. The chest CTA revealed multiple pulmonary nodules and was followed up with a PET scan. The FNA of they lymph node reported metastatic carcinoma without definitive primary with re-biopsy on 614 revealing adenocarcinoma with colorectal immunophenotype. PET scan completed 12/13- multiple pulm nodules int he right lung with additional small nodules, mediastinal and left infraclavicular LN, mixed intensity to right upper pole of kidney, hepatic lesions and bibasilar pulmonary nodules. In the interim the patient has had a medi-port placed in his right subclavian vein, and was due to start chemotherapy tomorrow with FOLFOX and Avastin under Dr. Moulton. He went to see his Grab Driver today for ongoing dyspnea that has started about 1-1/2 weeks ago. The patient stated that this dyspnea was also associated with a sharp stabbing pain that went across the bottom of his rib cage along his diaphragm, and this was so sharp it would limit his ability to take a deep breath. He had a chest x-ray performed at at pulmonary visit that demonstrated a right pleural effusion. He was sent to the EMD and pulmonary was consulted. He had a bedside thoracentesis performed with 1.6 L of bloody fluid drained. The patient was seen just after this procedure and noted an immediate relief in his symptoms and breathing. The patient was also noted a down trending of his HGB over the past 2 months from 9.6-7.8. He was also recently started iron supplementation this past week as well. The patient denies any dark tarry stools except this morning or any other blood loss. He has been noticing increase in his baseline dizziness as well over the past week. He reportedly was heme-positive in the EMD. In the setting of his pallor, fatigue, and chemotherapy induction tomorrow, will transfuse PRBC 1-2 units based on response and clinical need. For his dyspnea and tachycardia, he had his pleural effusion drained as above, agree with pulmonary that a CTA of the chest be performed to rule out pulmonary embolism. Already ordered and awaiting results. Patient will be admitted for monitoring of his pleural effusion, transfusion and further evaluate for acute blood loss, however his blood work now is consistent with chronic disease anemia, and follow up on his pleural fluid analysis. Admission Exam Per Admitting Provider PHYSICAL EXAM: General: pale, awake, alert, no apparent distress Head: Normocephalic, atraumatic ENT: PERRL, EOMI, no pharyngeal exudate, mucous membranes moist Neuro: AAO x 3, speech clear and appropriate, strength intact bilaterally 5/5, sensation intact and equal all extremities and dermatomes, no pronator drift Chest: equal rise and fall of the chest, no accessory muscle use, no heaves or thrills, diminished in the bases bilaterally, on 2LNC, Cardiac: Regular rate and rhythm, telemetry reviewed- tachycardic, skin warm dry, cap refill 3 seconds, peripheral pulses +2 no JVD, no murmur, trace lower extremity edema GI: NABS x 4 quadrants, soft, nontender to palpation, no rebound, guarding or tenderness : Spontaneously voiding, no pain, no CVA tenderness, Extremities: Normal inspection, no peripheral edema or erythema, calfs nontender to palpation Psych: Normal mood and affect Skin: no rash or erythema, band-aid over right thoracentesis site Principal Diagnosis Pleural Effusion Pulmonary Embolism Discharge Exam General: A&Ox3. NAD. Cooperative. HEENT: Atraumatic, normocephalic. Pulm: Decreased air entry bilaterally. -wheezes, -rales, -rhonchi. Symmetrical chest rise. No increase work of breathing. No respiratory distress. Cardiac: RRR, -mrg. Radial pulses intact and symmetrical. Abdominal: soft, non-tender, non-distended, BS x 4 Skin: warm, dry, no rash Discharge Data Allergies Allergy/AdvReac Type Severity Reaction Status Date / Time Cephalosporins Allergy Intermediate FEVER/CHILL Verified 01/21/21 13:25 S diazepam AdvReac Severe DEPRESSION Verified 01/21/21 13:25 midazolam AdvReac Severe suicidal Verified 01/21/21 13:25 depression warfarin AdvReac Severe CAUSES Verified 01/21/21 13:25 TOXICITY lisinopril AdvReac Mild COUGH Verified 01/21/21 13:25 Consultations 01/21/21 14:55 Consult Pulmonology Stat 01/21/21 16:04 ED Decision to Admit Stat 01/21/21 19:23 Consult Oncology Routine 01/22/21 10:55 Consult Palliative Care Routine Ordered Studies 01/21/21 16:39 CT angio chest PE protocol Routine Hospital Course (1) Shortness of breath: Nacho Bland is a 80 yo male with complex PMHx that includes metastatic colorectal carcinoma (to lungs, chest, liver, kidneys), COPD, HLD, GERD and Depression/Bipolar who was admitted to [facility] on 01/21 for shortness of breath in the context of right bloody pleural effusion, subsegmental PE, and pulmonary mets. Right Pleural Effusion- malignant adenocarcinoma - colorectal Shortness of breath x1 week, 1600cc of bloody fluid drained via thoracentesis by Pulm on 01/21. Pleural studies showing 77151 RBCs as well as high LDH and protein ratios - bloody exudative effusion likely due to malignancy. However initial gram stain positive for GPCs - concomitant infection cannot be ruled out. - pleural fluid cultures no growth to date - Malignant cells in pleural fluid - adenocarcinoma - started Augmentin 875/125mg PO BID x10 days on 01/22 - continue after discharge - f/u with Dr. Bray (Pulm) in 2 weeks for CXR and to evaluate for resolution of infection Subsegmental Pulmonary Embolism With SOB x1 week as above. Per CTA chest on 01/21, LLL subsegmental PE. Patient is hypercoagulable 2/2 cancer. - Pulm consulted as stated above - started on therapeutic Lovenox dosing on 01/22 - transition to Eliquis on discharge - 10mg PO BID x7 days, followed by 5mg PO BID thereafter - f/u with Pulm as above - stopped Plavix on discharge to avoid triple therapy (still on Aspirin) - f/u with PCP in 1 week to discuss this further Metastatic Colon Adenocarcinoma Confirmed as primary colon cancer, with extensive metastasis to chest/lung, liver and kidneys. Had been scheduled to start chemotherapy on 01/22. Met with Palliative care on 01/22 and mentioned that he is leaning towards not initiating chemotherapy. He will be speaking more with family about chemotherapy vs comfort care. - f/u with Dr. Tirado (Oncology) in 1 week to discuss options Acute Blood Loss Anemia With SOB x1 week as above. Extensive blood loss into pleural space - s/p thoracentesis as above, as well as 1 unit pRBCs. - Hgb 7.8 --> 9.1 after pRBCs - appropriate increase. Hgb remained stable in 9s. - FOBT positive but this is expected given colon cancer, no overt GI bleeding - home Plavix held as stated above COPD Stable without exacerbation. - continue home Ipratropium JONATHAN - continue home CPAP QHS CAD/HTN/HLD - continue home Lopressor 50mg PO BID, Torsemide 40mg PO daily, Imdur 60mg PO daily, Aspirin 81mg PO daily, Atorvastatin 40mg PO QHS, Fenofibrate 134mg PO QAM H/o Gastric Bypass - continue Iron/B12 supplementation Depression/Bipolar - continue home Aripiprazole 5mg PO QHS and Venlafaxine 225mg PO QHS GERD - continue Protonix 40mg PO daily per hospital formulary Mild Cognitive Impairment - continue home Donepezil 5mg PO QAM (2) Pleural effusion: (3) Metastatic colorectal cancer: (4) Pulmonary embolism: (5) COPD (chronic obstructive pulmonary disease): (6) Depression: (7) HLD (hyperlipidemia): (8) Anemia: (9) JONATHAN (obstructive sleep apnea): (10) Chronic GERD: (11) Bipolar affective disorder: (12) Pulmonary nodules: Total Time Total Time Spent Total Time Spent (In Minutes): 45 minutes Total Time Includes: Examination of the Patient, Discharge Planning, Medication Reconciliation and Communication With Other Providers Discharge Plan Discharge Items Patient Disposition: Home - Self-Care Reason For Visit: DYSNPEA, ANEMIA Discharge Diagnosis: Malignant Pleural Effusion Pulmonary Embolism Activity: Per Instructions section Non-emergency contact: Primary Care Provider, Oncologist and Grab Driver Call non-emergency contact if: you have any medication questions, your symptoms worsen, your pain is worsening, you have a fever, your wound has increased redness, your wound has increased drainage and your wound pain has increased Follow-up/Referrals: Mundo Dc MD [Primary Care Provider] - 01/29/21 11:30 am (Please follow up with Dr. Dc on Wednesday01/29/21 at 11:30 am. Please arrive to the office at 11:15 am for your appointment. If you are unable to keep this appointment, please call the office to reschedule at [phone].) Celestino,Nacho V., DO [Physician] - Luke Bray MD [Physician] - (Dr. Bray's office will call with appointment date and time.) Diet: Carb Consistent or DM2 Addtl Attending Provider Instructions: You were admitted to [facility] on 01/21 for shortness of breath due to a bloody collection of fluid near your right lung (called a pleural effusion) as well as a small blood clot in your lung (called a pulmonary embolism). Our Grab Driver was consulted (Dr. Alan), and he drained nearly 2 liters of bloody fluid, after which your shortness of breath significantly improved. Signs of infection were found in the fluid sample, so you were started on antibiotics for this and will continue this for 10 days. As far as the lung blood clot (pulmonary embolism), you were started on a blood thinner for this and will continue this after discharge. You were also given a unit of blood for low blood counts (due to blood loss into the pleural effusion), and your blood counts improved. You were also seen by our agricultural extension specialist regarding your long-term goals of care. You will be discharged in improved condition on 01/23/2021. You should continue to take the following medications, starting tonight: 1. Augmentin twice per day for 8 days 2. Eliquis: you should take 10mg (two pills) twice per day for 7 days. Then you should take 5mg (one pill) twice per day thereafter. You should stop taking Plavix (Clopidogrel). Please discuss this medication with your PCP at your next visit. You will follow up with Dr. Bray (Pulmonology) in 2 weeks to get a chest X- ray, make sure your pleural effusion is still resolved, and make sure that your infection resolved. You will follow up with Dr. Tirado (your Oncologist) in 1 week to discuss options, including chemotherapy and comfort care. You should also follow up with your PCP in 1 week. Pending Studies at Discharge: No Stand-Alone Forms: My [facility], Smoking Cessation Medications and DC Order Prescriptions: New amoxicillin-pot clavulanate [Augmentin] 875-125 mg tablet 1 tab PO BID 8 Days Qty: 16 RF: 0 apixaban 5 mg tablet See Rx Instructions .ROUTE .COMPLEX Qty: 90 RF: 0 oxycodone-acetaminophen [Percocet] 5-325 mg tablet 1 tab PO Q8H PRN (Reason: pain) Qty: 20 RF: 0 Continued multivitamin tablet 1 tab PO QPM Qty: 0 RF: 0 (DME) OneTouch Verio test strips strip See Dose Instructions .ROUTE .MEDSUPPLY Qty: 50 RF: 5 meclizine 25 mg tablet 25 mg PO TID PRN (Reason: dizziness) Qty: 90 RF: 3 atorvastatin 40 mg tablet 40 mg PO HS Qty: 90 RF: 3 metformin 500 mg tablet extended release 24 hr 1,000 mg PO BID Qty: 360 RF: 3 trazodone 100 mg tablet 300 mg PO HS Qty: 270 RF: 3 ipratropium bromide 42 mcg (0.06 %) spray,non-aerosol 2 spray intranasal BID PRN (Reason: nasal congestion) Qty: 15 RF: 11 (DME) lancets [OneTouch Delica Lancets] 33 gauge misc See Dose Instructions .ROUTE .MEDSUPPLY Qty: 30 RF: 5 nitroglycerin 400 mcg/spray spray,non-aerosol 1 sprays SL Q5M PRN (Reason: chest pain) Qty: 4.9 RF: 5 peg 400-propylene glycol 0.4-0.3 % drops 1 drops OP Q4H PRN (Reason: Dry Eye(S)) RF: 0 ketoconazole 2 % shampoo 1 appln topical 2XWK Qty: 120 RF: 1 isosorbide mononitrate 60 mg tablet extended release 24 hr 120 mg PO QAM RF: 0 glimepiride 1 mg tablet 1 mg PO .COMPLEX RF: 0 fenofibrate micronized 134 mg capsule 134 mg PO QAM RF: 0 ferrous sulfate [Feosol] 325 mg (65 mg iron) tablet 325 mg PO DAILY RF: 0 triamcinolone acetonide 0.1 % cream 1 appln TOP BID PRN (Reason: Rash) RF: 0 aripiprazole 5 mg tablet 5 mg PO HS Qty: 90 RF: 3 metoprolol tartrate 50 mg tablet 50 mg PO BID Qty: 180 RF: 1 aspirin 81 mg tablet,chewable 81 mg PO QAM RF: 0 cyanocobalamin (vitamin B-12) [Vitamin B-12] 1,000 mcg tablet 1,000 mcg PO HS RF: 0 biotin 5,000 mcg Tablet,Disintegrating 5,000 mcg PO HS RF: 0 venlafaxine 75 mg capsule,extended release 24hr 225 mg PO HS RF: 0 donepezil 5 mg tablet 5 mg PO QAM RF: 0 torsemide 20 mg tablet 40 - 60 mg PO QAM RF: 0 cholecalciferol (vitamin D3) 50 mcg (2,000 unit) tablet,chewable 50 mcg PO HS RF: 0 loratadine [Claritin] 10 mg Tablet 10 mg PO QAM RF: 0 omeprazole 40 mg Capsule,Delayed Release(Dr/Ec) 40 mg PO QAM RF: 0 oxycodone-acetaminophen [Percocet] 5-325 mg tablet 1 - 2 tab PO .q4-6h PRN (Reason: pain, for initial therapy, max 6 tabs per day) Qty: 6 RF: 0 Discontinued clopidogrel [Plavix] 75 mg tablet 75 mg PO QAM RF: 0 Discharge Orders: Discharge Order (Routine); Ordered 01/23/21 Ordered By: Shawn Otero Admission Data Admit Date/Time: 01/21/21 17:42 Attending Provider: Mi Funes Admit Provider: Josh Monteiro Primary Care Provider: Mundo Dc Other Providers: Bunny Alan ; Marcelle Sanabria ; Nacho Tirado V. ; Tierra Nix Other Interventions: Discharge Summary Assessment (RN) Last Done: 01/23/21 13:35 Supervising Physician Co-Signing Physician Notes Resident Physician Supervision Note: I independently interviewed and examined the patient and verified the jimenez history and physical, reviewed labs and image studies and agree with resident Dr. Otero findings and care plan. Resident Activity Tracking Resident Involvement: Resident Care Provided Care Provided: Adult Hospital Medicine
== END 2021-01-23 14:23 | disposition home or self-care (01) | DRG 186 ==
LOC: ED 14:42 → SUATTDRO 17:42 → 2S 17:42